=== PATIENT | male | born 1945 | race Caucasian/White ===

== ENCOUNTER → 2016-04-14 | Outpatient (RCR) ==
--- NOTE | 2016-03-25 16:24 | RS.OPPTEV2 ---
Date of Note: 03/24/16 Visit #: 1 Date of Evaluation: 03/24/16 Payer Source: MEDICARE Treatment Diagnosis: low back pain, LE pain, Parkinson's History of Condition/Mechanism of Injury:: Patient reports progressive low back pain for the last few years. Reports no specific injury. He was diagnosed with Parkinson's approximately 3 years ago and reports decreased flexibility and LE weakness. Prior Level of Function.....Patient was independent with: ADL's, Self Care, Caregiving, Ambulation/Mobility, Community Integration/Access Functional Limitations: ADL's, Reaching, Pushing, Pulling, Lifting, Carrying, Sitting, Standing, Bending, Squatting, Ambulation, Community Access/Integration Current Subjective/complaints:: Patient reports low back pain with just about any activity that he has to lift something or bend over. States at times his pain is sharp like a knife. Reports no radiating pain into the legs, but sometimes pain into the buttock area, bilaterally. Denies any numbness in the LE's. Reports tightness in the legs, weakness, and occasionally leg restlessness at night. He has had some problems with dizziness. He had one fall due to dizziness. States if he takes his time when changing positions, he will have less dizziness. Medical History Medical History: Hypertension Smoking Status: Former smoker Hx Home Medications: Sinemet, Xozaar, ASA, Azilect,Lexapro Patient's Goals: His goal is to get relief of back and LE pain. Pain Assessment - Pain Description Pain Location: low back Current Pain Intensity: 1/10 Worst Pain Intensity: 7/10 Functional Outcome Measure Oswestry LBP: 20 - G Codes & Severity Modifier G Codes & Modifier: Mobility current CJ. Mobility goal CH Source of G Code score: Oswestry LBP scale Observation - Observation Posture: Forward Head, Rounded Shoulders, Scapula Asymmetry (left elevated), Decreased Lumbar Lordosis, Posterior Pelvic Tilt Handedness: Left Comments: Demonstrates a resting tremor, most noticable in the left hand. Gait - Gait Pattern Gait Comments: Patient ambulates without an assistive device, independently. He exhibits a forward posture with decreased bilateral hip and knee flexion and decreased reciprocal arm swing. General Range of Motion: Bilateral shoulder AROM is approximately 75-80% of normal range due to muscle tightness. Bilateral elbow, wrist, and hand AROM is WFL's. Left LE AROM is WFL's, however the left hip joint is tighter throughout compared to the right hip. Bilateral knees and ankle ROM is WFL's. Lumbar AROM is WFL's. Lumbar flexion with reports of tightness in the LE's. lumbar extension is approximately 25% of normal. Tightness in the trunk with lower trunk rotation, more on the left side. Muscle Strength: Bilateral UE strength is 5/5 throughout. Left hip flexor is 4/ 5, All else of bilateral hips 4+/5. Trunk strength 4-/5. - Strength Trunk Rotation: 4- Good- - Special Tests SUSAN Test: Negative Left, Negative Right SLR Test: Negative Left, Negative Right Keyla's Sign Test: Negative Left, Negative Right Seated Dural Stretch Test: Negative Left, Negative Right SI Joint Compression: Negative SI Joint Distraction: Negative Palpation Comments:: Patient reports no tenderness to either SI joint region or throughout the lumbar paraspinals. Sensation - Sensation Right Upper Extremity: Intact/Normal Left Upper Extremity: Intact/Normal Right Lower Extremity: Intact/Normal Left Lower Extremity: Intact/Normal Balance - Sitting Balance Static Sitting Balance: Good Dynamic Sitting Balance: Good - Standing Balance Static Standing Balance: Good (-) Dynamic Standing Balance: Good (-) - Comments Balance Assessment Comments: Balance assessment on Biodex: patient displays good static and dyamic balance. Coordination - Tests Left Finger to Nose: Normal/Intact Heel to Stewart: Normal/Intact Toe Tapping: Mild Deviation (with increased speed) Right Finger to Nose: Normal/Intact Heel to Stewart: Normal/Intact Toe Tapping: Normal/Intact Additional Comments: Additional Comments: SLR in supine: right 40 degrees, left 30-35 degrees. Interventions - Exercise/Activities/Manual Therapy Exercises/Activities: Patient instructed in exercises for home of stretching of : HS stretch, lower trunk rotation, pec stretch (corner). Total minutes of Exercise: X 10 mins Manual Therapy: NA HOME EXERCISE PROGRAM: stretching of: HS stretch, lower trunk rotation, pec stretch (corner). - Charges Total Direct Minutes: 48 mins Total Treatment Time: 48 mins Procedures billed for this date of service:: EVAL Assessment Assessment: Patient presents to therapy with diagnosis of low back pain and Parkinson's Disease. He demonstrates marked hamstring and trunk limitation from muscle tightness. Exhibits weakness in the left hip flexors and trunk. He demonstrates potential to gain relief of low back pain and improved mobility with stretching and trunk and LE strengthening. Patient Education: Education of diagnosis, Body/Joint mechanics, Home Exercise Program, Home Safety, Activity Modification, Education of Plan of Care Rehab Potential: Good Short Term Goals Goal #1: Pt independent and compliant with basic HEP. Goal to be met by: 04/08/16 Goal #2: Bilateral SLR to 45 degrees. Goal to be met by: 04/08/16 Goal #3: Trunk strength 4/5. Goal to be met by: 04/08/16 Goal #4: Low Back pain <4/10 at it's worst. Goal to be met by: 04/08/16 Applications Processor Goals Goal #1: Pt knows HEP and to continue to maintain functional level at discharge. Goal to be met by: 05/04/16 Goal #2: Pt able to perform ADL's and light lifting/yardwork without back pain. Goal to be met by: 05/04/16 Goal #3: Score on Oswesty LBP scale improved to 0 impairment. Goal to be met by: 05/04/16 Goal #4: Pt to demo. good understanding of Parkinson's symptom management. Goal to be met by: 05/04/16 Plan - Treatment to be Provided Procedures: Therapeutic Exercises, Therapeutic Activity, Manual Therapy, Patient Education Modalities: Electrical Stimulation, Ultrasound/Phonophoresis, Cryotherapy, Hot Packs, Mechanical Traction (lumbar) - Treatment Plan Frequency: 3 X week Duration: 4 weeks ORDER # VISITS AND/OR THROUGH DATE: 05/04/16 - Treatment Code (1) Low back pain Qualifiers: Chronicity: chronic Back pain laterality: bilateral Sciatica presence: unspecified whether sciatica present Qualified Description: Chronic bilateral low back pain, with sciatica presence unspecified Qualifier Code(s): (M54.5) Low back pain, (G89.29) Other chronic pain (2) Weakness of trunk musculature Comments: M62.81 (3) Hamstring tightness of both lower extremities Comments: M62.9 (4) Parkinson disease Comments: G20
--- NOTE | 2016-03-25 16:33 | RS.OPPTDN ---
Subjective Date of Note: 03/25/16 Visit #: 2 Date of Evaluation: 03/24/16 Payer Source: MEDICARE Treatment Diagnosis: low back pain, LE pain, Parkinson's Current Subjective/complaints:: Patient states his legs are sore from performing stretching exercises at home. Following session today, patient states he feels more limber. Reports stretching to left HS bothers his knee in the posterior region. Pain Assessment - Pain Description Pain Location: low back Current Pain Intensity: not quantified - Heat/Cryotherapy Treatment: Hot Pack (X 15 mins to low back and HS prior to stretching) Interventions - Exercise/Activities/Manual Therapy Exercises/Activities: Patient assisted with stretching of bilateral LE's: HS, SKTC, and piriformis. Also stretched into bilateral lower trunk rotation. Patient performed door threshold/corner stretch to improve flexibility in pec major. Total minutes of Exercise: X 28 mins Manual Therapy: NA HOME EXERCISE PROGRAM: stretching of: HS stretch, lower trunk rotation, pec stretch (corner). - Charges Total Direct Minutes: 28 mins Total Treatment Time: 43 mins Procedures billed for this date of service:: HP, Ex2 Assessment: Patient appears compliant with stretching HEP. Feels more limber today following therapy. He demonstrates the need for continued stretching and progressed exercises to strengthening for his trunk and LE's. Patient Education: Education of diagnosis, Body/Joint mechanics, Home Exercise Program Patient demonstrates compliance with HEP?: Yes Short Term Goals Goal #1: Pt independent and compliant with basic HEP. Goal to be met by: 04/08/16 Goal #2: Bilateral SLR to 45 degrees. Goal to be met by: 04/08/16 Goal #3: Trunk strength 4/5. Goal to be met by: 04/08/16 Goal #4: Low Back pain <4/10 at it's worst. Goal to be met by: 04/08/16 Assisted Goals Goal #1: Pt knows HEP and to continue to maintain functional level at discharge. Goal to be met by: 05/04/16 Goal #2: Pt able to perform ADL's and light lifting/yardwork without back pain. Goal to be met by: 05/04/16 Goal #3: Score on Oswesty LBP scale improved to 0 impairment. Goal to be met by: 05/04/16 Goal #4: Pt to demo. good understanding of Parkinson's symptom management. Goal to be met by: 05/04/16 Plan PLAN OF CARE EXPIRES ON:: 05/04/16 ORDER # VISITS AND/OR THROUGH DATE: 05/04/16 PLAN: Progress Exercises
--- NOTE | 2016-03-27 14:17 | RS.OPPTDN ---
Subjective Date of Note: 03/27/16 Visit #: 3 Date of Evaluation: 03/24/16 Payer Source: MEDICARE Treatment Diagnosis: low back pain, LE pain, Parkinson's Current Subjective/complaints:: Reports muscle soreness from beginning stretches ,but no sharp pain at this time. Pain Assessment - Pain Description Pain Location: low back Pain Description: Tightness, Dull, Aching Current Pain Intensity: not quantified - Heat/Cryotherapy Treatment: Hot Pack (20 mins. to lumbar and bilateral hamstrings prior to exercises) Interventions - Exercise/Activities/Manual Therapy Exercises/Activities: 30 mins. total of SKTC,DKTC,90/90 hamstring stretches, piriformis stretches,lower trunk rotation.Contract-relax method for hamstring stretches. Total minutes of Exercise: 30 Manual Therapy: NA Total minutes of Manual Therapy: 0 HOME EXERCISE PROGRAM: stretching of: HS stretch, lower trunk rotation, pec stretch (corner). - Charges Total Direct Minutes: 30 Total Treatment Time: 50 Procedures billed for this date of service:: hp,ex 2 Assessment: Patient tolerates all lumbar stretches well,reports slight increase in pain with L piriformis stretches,and with hamstring stretches.He has moderate tightness bilaterally in hamstrings,L > R today.He is attentive to recommendations of the therapy staff. Patient Education: Education of diagnosis, Body/Joint mechanics, Home Exercise Program, Home Safety, Activity Modification, Education of Plan of Care Patient demonstrates compliance with HEP?: Yes Short Term Goals Goal #1: Pt independent and compliant with basic HEP. Goal to be met by: 04/08/16 Progress towards Goal:: Progressing Goal #2: Bilateral SLR to 45 degrees. Goal to be met by: 04/08/16 Goal #3: Trunk strength 4/5. Goal to be met by: 04/08/16 Goal #4: Low Back pain <4/10 at it's worst. Goal to be met by: 04/08/16 Employment Legal Assistant Goals Goal #1: Pt knows HEP and to continue to maintain functional level at discharge. Goal to be met by: 05/04/16 Goal #2: Pt able to perform ADL's and light lifting/yardwork without back pain. Goal to be met by: 05/04/16 Goal #3: Score on Oswesty LBP scale improved to 0 impairment. Goal to be met by: 05/04/16 Goal #4: Pt to demo. good understanding of Parkinson's symptom management. Goal to be met by: 05/04/16 Plan PLAN OF CARE EXPIRES ON:: 05/04/16 ORDER # VISITS AND/OR THROUGH DATE: 05/04/16 PLAN: Continue Plan of Care
--- NOTE | 2016-03-30 14:56 | RS.OPPTDN ---
Subjective Date of Note: 03/30/16 Visit #: 4 Date of Evaluation: 03/24/16 Payer Source: MEDICARE Treatment Diagnosis: low back pain, LE pain, Parkinson's Current Subjective/complaints:: Patient states the stretching seems to be helping his legs. States his left knee hurts in the posterior region of the joint during HS stretching. Pain Assessment - Pain Description Pain Location: low back Pain Description: Tightness, Dull, Aching Current Pain Intensity: not quantified - Heat/Cryotherapy Treatment: Hot Pack (X 15 mins to low back and HS while lying supine prior to stretching) Interventions - Exercise/Activities/Manual Therapy Exercises/Activities: 35 mins. total of SKTC,DKTC,90/90 hamstring stretches, piriformis stretches,lower trunk rotation.Contract-relax method for hamstring stretches. Stretching pec major in door threshold X 5 reps. Manual Therapy: NA HOME EXERCISE PROGRAM: stretching of: HS stretch, lower trunk rotation, pec stretch (corner). - Charges Total Direct Minutes: 35 mins Total Treatment Time: 50 mins Procedures billed for this date of service:: HP, Ex2 Assessment: Patient tolerates stretching well except for discomfort in the posterior aspect of the left knee. Reports stretching is benefitting his legs. Patient Education: Education of diagnosis, Body/Joint mechanics Patient demonstrates compliance with HEP?: Yes Short Term Goals Goal #1: Pt independent and compliant with basic HEP. Goal to be met by: 04/08/16 Progress towards Goal:: Progressing Goal #2: Bilateral SLR to 45 degrees. Goal to be met by: 04/08/16 Progress towards Goal:: Progressing Goal #3: Trunk strength 4/5. Goal to be met by: 04/08/16 Goal #4: Low Back pain <4/10 at it's worst. Goal to be met by: 04/08/16 Senior Living Goals Goal #1: Pt knows HEP and to continue to maintain functional level at discharge. Goal to be met by: 05/04/16 Goal #2: Pt able to perform ADL's and light lifting/yardwork without back pain. Goal to be met by: 05/04/16 Goal #3: Score on Oswesty LBP scale improved to 0 impairment. Goal to be met by: 05/04/16 Goal #4: Pt to demo. good understanding of Parkinson's symptom management. Goal to be met by: 05/04/16 Plan PLAN OF CARE EXPIRES ON:: 05/04/16 ORDER # VISITS AND/OR THROUGH DATE: 05/04/16 PLAN: Continue Plan of Care
--- NOTE | 2016-04-01 14:29 | RS.OPPTDN ---
Subjective Date of Note: 04/01/16 Visit #: 5 Date of Evaluation: 03/24/16 Payer Source: MEDICARE Treatment Diagnosis: low back pain, LE pain, Parkinson's Current Subjective/complaints:: Reports the stretches seem to help his legs , but the back pain is still present. Pain Assessment - Pain Description Pain Location: low back Pain Description: Tightness, Dull, Aching Current Pain Intensity: 2-3 today - Treatment Modality: Electrical Stim Unattended Parameters/Method Applied: 20 mins. high volt,channel 1 and 2 @ 125 pv to lumbar region. Patient Position: Supine - Heat/Cryotherapy Treatment: Hot Pack (concurrent with e-stim) Interventions - Exercise/Activities/Manual Therapy Exercises/Activities: 30 mins. total of SKTC,DKTC,lower trunk rotation,90/90 hamstring stretches,using contract-relax method.HEP review ,including corner stretches for pecs. Total minutes of Exercise: 30 Manual Therapy: NA Total minutes of Manual Therapy: 0 HOME EXERCISE PROGRAM: stretching of: HS stretch, lower trunk rotation, pec stretch (corner). - Charges Total Direct Minutes: 30 Total Treatment Time: 50 Procedures billed for this date of service:: hp,e-stim, ex 2 Assessment: Patient continues to have improved hamstring extensibility after contract-relax method,but the L LE is tighter than the L,also tighter on the L lumbar with lower trunk rotation. Patient Education: Education of diagnosis, Body/Joint mechanics, Home Exercise Program, Home Safety, Activity Modification, Education of Plan of Care Patient demonstrates compliance with HEP?: Yes Short Term Goals Goal #1: Pt independent and compliant with basic HEP. Goal to be met by: 04/08/16 Progress towards Goal:: Progressing Goal #2: Bilateral SLR to 45 degrees. Goal to be met by: 04/08/16 Progress towards Goal:: Progressing Goal #3: Trunk strength 4/5. Goal to be met by: 04/08/16 Goal #4: Low Back pain <4/10 at it's worst. Goal to be met by: 04/08/16 Grading Machine Feeder Goals Goal #1: Pt knows HEP and to continue to maintain functional level at discharge. Goal to be met by: 05/04/16 Progress towards goal: Progressing Goal #2: Pt able to perform ADL's and light lifting/yardwork without back pain. Goal to be met by: 05/04/16 Goal #3: Score on Oswesty LBP scale improved to 0 impairment. Goal to be met by: 05/04/16 Goal #4: Pt to demo. good understanding of Parkinson's symptom management. Goal to be met by: 05/04/16 Plan PLAN OF CARE EXPIRES ON:: 05/04/16 ORDER # VISITS AND/OR THROUGH DATE: 05/04/16 PLAN: Continue Plan of Care
--- NOTE | 2016-04-06 14:29 | RS.OPPTDN ---
Subjective Date of Note: 04/03/16 Date of Evaluation: 03/24/16 Payer Source: MEDICARE Treatment Diagnosis: low back pain, LE pain, Parkinson's Current Subjective/complaints:: Reports the posterior of the L knee is sore today,his back feels better. Pain Assessment - Pain Description Pain Location: low back ck of L knee Pain Description: Tightness, Dull, Aching Current Pain Intensity: 2-3 today - Treatment Modality: Electrical Stim Unattended Parameters/Method Applied: 20 mins. high volt,channel 1 and 2 @ 125 pv to lumbar Patient Position: Supine - Heat/Cryotherapy Treatment: Hot Pack (concurrent with e-stim) Interventions - Exercise/Activities/Manual Therapy Exercises/Activities: 20 mins. total of SKTC,DKTC,lower trunk rotation,90/90 hamstring stretches,using contract-relax method.HEP review ,including corner stretches for pecs. Total minutes of Exercise: 30 Manual Therapy: NA Total minutes of Manual Therapy: 0 HOME EXERCISE PROGRAM: stretching of: HS stretch, lower trunk rotation, pec stretch (corner). - Charges Total Direct Minutes: 20 Total Treatment Time: 40 Procedures billed for this date of service:: hp,e-stim,ex Assessment: Patient reports the back pain continues to lessen,LE's feel looser with walking after stretches. Patient Education: Body/Joint mechanics, Home Exercise Program, Education of Plan of Care Patient demonstrates compliance with HEP?: Yes Short Term Goals Goal #1: Pt independent and compliant with basic HEP. Goal to be met by: 04/08/16 Progress towards Goal:: Progressing Goal #2: Bilateral SLR to 45 degrees. Goal to be met by: 04/08/16 Progress towards Goal:: Progressing Goal #3: Trunk strength 4/5. Goal to be met by: 04/08/16 Goal #4: Low Back pain <4/10 at it's worst. Goal to be met by: 04/08/16 Progress towards Goal:: Progressing Snf Goals Goal #1: Pt knows HEP and to continue to maintain functional level at discharge. Goal to be met by: 05/04/16 Progress towards goal: Progressing Goal #2: Pt able to perform ADL's and light lifting/yardwork without back pain. Goal to be met by: 05/04/16 Goal #3: Score on Oswesty LBP scale improved to 0 impairment. Goal to be met by: 05/04/16 Goal #4: Pt to demo. good understanding of Parkinson's symptom management. Goal to be met by: 05/04/16 Progress towards goal: Progressing Plan PLAN OF CARE EXPIRES ON:: 05/04/16 ORDER # VISITS AND/OR THROUGH DATE: 05/04/16 PLAN: Continue Plan of Care
--- NOTE | 2016-04-06 14:36 | RS.OPPTDN ---
Subjective Date of Note: 04/06/16 Visit #: 7 Date of Evaluation: 03/24/16 Payer Source: MEDICARE Treatment Diagnosis: low back pain, LE pain, Parkinson's Current Subjective/complaints:: Reports the L knee is less sore today,and the back pain is lessening since beginning the e-stim. Pain Assessment - Pain Description Pain Location: low back Pain Description: Dull, Aching Current Pain Intensity: 2-3 today - Treatment Modality: Electrical Stim Unattended Parameters/Method Applied: 20 mins. high volt,channel 1 and 2 @ 125 pv,to lumbar. Patient Position: Supine - Heat/Cryotherapy Treatment: Hot Pack (concurrent with e-stim.) Interventions - Exercise/Activities/Manual Therapy Exercises/Activities: 30 mins. total of SKTC,DKTC,lower trunk rotation, piriformis stretches.Progressed to 3/15 reps on leg press @ 60 # ,ended session with 3/10 reps. calf-raises on leg press @ 45 #.HEP review of all stretches, including pecs. for posture. Total minutes of Exercise: 30 Manual Therapy: NA HOME EXERCISE PROGRAM: stretching of: HS stretch, lower trunk rotation, pec stretch (corner). - Charges Total Direct Minutes: 30 Total Treatment Time: 50 Procedures billed for this date of service:: hp,e-stim,ex 2 Assessment: Patient has no report of increased leg or back pain today , tolerates resistive exercises well,no knee pain.He reports fatigue in his LE's after treatment ,but has steady gait with exiting clinic. Patient Education: Education of diagnosis, Body/Joint mechanics, Home Exercise Program, Home Safety, Activity Modification, Education of Plan of Care Patient demonstrates compliance with HEP?: Yes Short Term Goals Goal #1: Pt independent and compliant with basic HEP. Goal to be met by: 04/08/16 Progress towards Goal:: Progressing Goal #2: Bilateral SLR to 45 degrees. Goal to be met by: 04/08/16 Progress towards Goal:: Progressing Goal #3: Trunk strength 4/5. Goal to be met by: 04/08/16 Progress towards Goal:: Progressing Goal #4: Low Back pain <4/10 at it's worst. Goal to be met by: 04/08/16 Progress towards Goal:: Progressing Hand Tube Winder Goals Goal #1: Pt knows HEP and to continue to maintain functional level at discharge. Goal to be met by: 05/04/16 Progress towards goal: Progressing Goal #2: Pt able to perform ADL's and light lifting/yardwork without back pain. Goal to be met by: 05/04/16 Goal #3: Score on Oswesty LBP scale improved to 0 impairment. Goal to be met by: 05/04/16 Goal #4: Pt to demo. good understanding of Parkinson's symptom management. Goal to be met by: 05/04/16 Progress towards goal: Progressing Plan PLAN OF CARE EXPIRES ON:: 05/04/16 ORDER # VISITS AND/OR THROUGH DATE: 05/04/16 PLAN: Progress Exercises
--- NOTE | 2016-04-13 13:19 | RS.OPPTDN ---
Subjective Date of Note: 04/09/16 Visit #: 8 Date of Evaluation: 03/24/16 Payer Source: MEDICARE Treatment Diagnosis: low back pain, LE pain, Parkinson's Current Subjective/complaints:: Patient states he fell last night in his [employer] [place]. States he was walking out and dropped his bible. When he looked down at the bible, he black out and fell down, hitting his head on the pavement. He did not go to the ER and has not called his doctor. Reports being sore all over today. Pain Assessment - Pain Description Pain Location: low back Pain Description: Dull, Aching Current Pain Intensity: not quanitified, sore due to fall - Treatment Modality: Electrical Stim Unattended Parameters/Method Applied: 4 large pads, uncrossed current to lumbar spine bilaterally X 20 mins HVGS @ 100 peak volts. Patient Position: Supine - Heat/Cryotherapy Treatment: Hot Pack ( with estim to low back) Interventions - Exercise/Activities/Manual Therapy Exercises/Activities: 18 mins. total of SKTC,DKTC,lower trunk rotation, piriformis stretches. Performed SAQ's with 3# weights 2 sets of 10 reps. No leg press today as patient appears more guarded today due to soreness from his fall last night. Manual Therapy: NA HOME EXERCISE PROGRAM: stretching of: HS stretch, lower trunk rotation, pec stretch (corner). - Charges Total Direct Minutes: 18 mins Total Treatment Time: 38 mins Procedures billed for this date of service:: HP, Estim, EX Assessment: Patient with more discomfort today due to falling last night. He did not perform as many activities today in department. Will resume leg press and other LE strengthening exercises on next visit. Patient Education: Education of diagnosis, Body/Joint mechanics, Home Exercise Program, Activity Modification Short Term Goals Goal #1: Pt independent and compliant with basic HEP. Goal to be met by: 04/08/16 Progress towards Goal:: Progressing Goal #2: Bilateral SLR to 45 degrees. Goal to be met by: 04/08/16 Progress towards Goal:: Progressing Goal #3: Trunk strength 4/5. Goal to be met by: 04/08/16 Progress towards Goal:: Progressing Goal #4: Low Back pain <4/10 at it's worst. 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 Goal to be met by: 05/04/16 Progress towards goal: Progressing Goal #2: Pt able to perform ADL's and light lifting/yardwork without back pain. Goal to be met by: 05/04/16 Goal #3: Score on Oswesty LBP scale improved to 0 impairment. Goal to be met by: 05/04/16 Goal #4: Pt to demo. good understanding of Parkinson's symptom management. Goal to be met by: 05/04/16 Progress towards goal: Progressing Plan PLAN OF CARE EXPIRES ON:: 05/04/16 ORDER # VISITS AND/OR THROUGH DATE: 05/04/16 PLAN: Progress Exercises
--- NOTE | 2016-04-14 16:40 | RS.OPPTDN ---
Subjective Date of Note: 04/14/16 Visit #: 9 Date of Evaluation: 03/24/16 Payer Source: MEDICARE Treatment Diagnosis: low back pain, LE pain, Parkinson's Current Subjective/complaints:: Patient reports low back feels a little better. States Estim feels good to the low back. Right knee bothers him during exercises today. The right knee is the one he went down on and hit when he fell last week. States he is going to wean off of Lexapro as he has learned that it should not be taken with Azilect. Pain Assessment - Pain Description Pain Location: low back Pain Description: Dull, Aching - Treatment Modality: Electrical Stim Unattended Parameters/Method Applied: 4 large pads, uncrossed to low back X 20 mins @ 110 peak volts. Patient Position: Supine - Heat/Cryotherapy Treatment: Hot Pack (with Estim to low back) Interventions - Exercise/Activities/Manual Therapy Exercises/Activities: 22 mins. total of SKTC,DKTC,lower trunk rotation, piriformis stretches. Performed SAQ's and hooklying alternate hip flexion with 3 # weights 2 sets of 10 reps, isometric trunk rotation X 8 reps. Leg press with 45# 2 sets of 15 , then 60# heel raises 2 sets of 15 reps. Standing lat pull on tower with 15-20# ,2 sets of 15 reps. Manual Therapy: NA HOME EXERCISE PROGRAM: stretching of: HS stretch, lower trunk rotation, pec stretch (corner). - Charges Total Direct Minutes: 22 mins Total Treatment Time: 42 mins Procedures billed for this date of service:: hp, estim, Ex Assessment: Patient feeling better today, less sore. Tolerates all LE exercises well. He demonstrates the need for continued trunk and LE strengthening to improve his mobilit and decrease his back pain. Patient Education: Education of diagnosis, Home Exercise Program, Activity Modification Patient demonstrates compliance with HEP?: Yes Short Term Goals Goal #1: Pt independent and compliant with basic HEP. Goal to be met by: 04/08/16 Progress towards Goal:: Progressing Goal #2: Bilateral SLR to 45 degrees. Goal to be met by: 04/08/16 Progress towards Goal:: Progressing Goal #3: Trunk strength 4/5. Goal to be met by: 04/08/16 Progress towards Goal:: Progressing Goal #4: Low Back pain <4/10 at it's worst. 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 Goal to be met by: 05/04/16 Progress towards goal: Progressing Goal #2: Pt able to perform ADL's and light lifting/yardwork without back pain. Goal to be met by: 05/04/16 Goal #3: Score on Oswesty LBP scale improved to 0 impairment. Goal to be met by: 05/04/16 Goal #4: Pt to demo. good understanding of Parkinson's symptom management. Goal to be met by: 05/04/16 Progress towards goal: Progressing Plan PLAN OF CARE EXPIRES ON:: 05/04/16 ORDER # VISITS AND/OR THROUGH DATE: 05/04/16 PLAN: Progress Exercises
== END ==
PROVIDERS: ATTEND Specialist
DX: M54.42 Lumbago with sciatica, left side (principal); M54.41 Lumbago with sciatica, right side; G89.29 Other chronic pain; M62.81 Muscle weakness (generalized); M62.9 Disorder of muscle, unspecified; G20 Parkinson's disease

== ENCOUNTER → 2016-05-12 | Outpatient (RCR) ==
--- NOTE | 2016-04-16 16:15 | RS.OPPTDN ---
Subjective Date of Note: 04/16/16 Visit #: 10 Date of Evaluation: 03/24/16 Payer Source: MEDICARE Treatment Diagnosis: low back pain, LE pain, Parkinson's Current Subjective/complaints:: Patient feels the therapy is helping ,motivated to improve. Pain Assessment - Pain Description Pain Location: low back Pain Description: Tightness, Dull, Aching Current Pain Intensity: not rated today - Treatment Modality: Electrical Stim Unattended Parameters/Method Applied: 20 mins. high volt to lumbar ,2 channels @ 130-135pv. Patient Position: Supine - Heat/Cryotherapy Treatment: Hot Pack (concurrent with e-stim) Interventions - Exercise/Activities/Manual Therapy Exercises/Activities: 20 mins. total of SKTC,DKTC,lower trunk rotation, piriformis stretches. Performed SAQ's and hooklying alternate hip flexion with 3 # weights 2 sets of 10 reps, isometric trunk rotation X 8 reps. Leg press with 45# 2 sets of 15 , then 60# heel raises 2 sets of 15 reps. Standing lat pull on tower with 15-20# ,2 sets of 15 reps. Total minutes of Exercise: 20 Manual Therapy: NA Total minutes of Manual Therapy: 0 HOME EXERCISE PROGRAM: stretching of: HS stretch, lower trunk rotation, pec stretch (corner). - Charges Total Direct Minutes: 20 Total Treatment Time: 40 Procedures billed for this date of service:: hp,e-stim,exercise Assessment: Patient is progressing ,but can continue to benefit from skilled therapy to improve his hamstring extensibility,strengthen his trunk extensors for posture,further educate patient regarding management of Parkinson's. Patient Education: Body/Joint mechanics, Home Exercise Program, Education of Plan of Care Patient demonstrates compliance with HEP?: Yes Short Term Goals Goal #1: Pt independent and compliant with basic HEP. Goal to be met by: 04/08/16 Progress towards Goal:: Progressing Goal #2: Bilateral SLR to 45 degrees. Goal to be met by: 04/08/16 Progress towards Goal:: Progressing Goal #3: Trunk strength 4/5. Goal to be met by: 04/08/16 Progress towards Goal:: Progressing Goal #4: Low Back pain <4/10 at it's worst. Goal to be met by: 04/08/16 Progress towards Goal:: Progressing Fdc Goals Goal #1: Pt knows HEP and to continue to maintain functional level at discharge. Goal to be met by: 05/04/16 Progress towards goal: Progressing Goal #2: Pt able to perform ADL's and light lifting/yardwork without back pain. Goal to be met by: 05/04/16 Goal #3: Score on Oswesty LBP scale improved to 0 impairment. Goal to be met by: 05/04/16 Progress towards goal: Progressing Goal #4: Pt to demo. good understanding of Parkinson's symptom management. Goal to be met by: 05/04/16 Progress towards goal: Progressing Plan PLAN OF CARE EXPIRES ON:: 05/04/16 ORDER # VISITS AND/OR THROUGH DATE: 05/04/16 PLAN: Progress Exercises
--- NOTE | 2016-04-21 13:12 | RS.PTSUM ---
Progress Note/Summary Date of Note: 04/20/16 Date of Evaluation: 03/24/16 Number of Visits: 10 Reporting Period for this Progress Note: 03/24/16 through 04/16/16 Current Complaints/Gains: Patient reports therapy is helping his low back. He is performing his HEP at home. Recent fall last week has made him more sore. He feels he would benefit from continued therapy. Objective Measurements/Presentation: Patient demonstrates generalized lack of flexibility due to Parkinson's. He has gained flexibility in the hamstrings, but continues to be significantly tight. He demonstrates multiple times of being unsteady on his feet, either while walking in department or losing balance when performing transfers. Reports issues with sporadic dizziness and vision being affected. He continues to demonstrate general weakness of LE and trunk strength. G Codes: Mobility current CI. Mobility goal CH Source of G Code Score: Oswestry LBP score of 14. - Short Term Goals Goal #1: Pt independent and compliant with basic HEP. Goal to be met by: 05/04/16 Progress towards Goal:: Progressing Goal #2: Bilateral SLR to 45 degrees. Goal to be met by: 05/04/16 Progress towards Goal:: Progressing Goal #3: Trunk strength 4/5. Goal to be met by: 05/04/16 Progress towards Goal:: Progressing Goal #4: Low Back pain <4/10 at it's worst. Goal to be met by: 05/04/16 Progress towards Goal:: Progressing - Senior Living Goals Goal #1: Pt knows HEP and to continue to maintain functional level at discharge. Goal to be met by: 06/01/16 Progress towards goal: Progressing Goal #2: Pt able to perform ADL's and light lifting/yardwork without back pain. Goal to be met by: 06/01/16 Goal #3: Score on Oswesty LBP scale improved to 0 impairment. Goal to be met by: 06/01/16 Progress towards goal: Progressing Goal #4: Pt to demo. good understanding of Parkinson's symptom management. Goal to be met by: 06/01/16 Progress towards goal: Progressing - Assessment Assessment of Improvement/Progress: Patient demonstrates the need for continued trunk and LE strengthening to improve overall mobility and safety with ambulation. Summary: Patient has made progress towards goals., Patient demonstrates potential to gain increased function with therapy, Maximum potential has yet to be attained. - Plan Plan: Will request continuation of therapy sessions. PLAN OF CARE EXPIRES ON:: 06/01/16 ORDER # VISITS AND/OR THROUGH DATE: 06/01/16
--- NOTE | 2016-04-21 15:51 | RS.OPPTDN ---
Subjective Date of Note: 04/21/16 Visit #: 11 Date of Evaluation: 03/24/16 Payer Source: MEDICARE Treatment Diagnosis: low back pain, LE pain, Parkinson's Current Subjective/complaints:: Patient states his back is doing better. States he knows that he needs more strengthening in his legs. States he has been trying to remember to swing his arms better with walking. Reports dizziness during standing exercises. Pain Assessment - Pain Description Pain Location: low back Pain Description: Tightness, Dull Current Pain Intensity: mild - Treatment Modality: Electrical Stim Unattended Parameters/Method Applied: 4 large pads, one lead running horizontally across the region of ~ L4-L5 and the other lead horizontally a few levels higher X 20 mins up to 115 peak volts Patient Position: Supine - Heat/Cryotherapy Treatment: Hot Pack (with Estim to lumbar spine) Interventions - Exercise/Activities/Manual Therapy Exercises/Activities: 19 mins. total of hamstring ,lower trunk rotation , piriformis stretches. Performed SAQ's and hooklying alternate hip flexion with 4 # weights 2 sets of 10 reps, isometric trunk rotation X 8 reps. Leg press with 60# 2 sets of 15 , then 60# heel raises 2 sets of 15 reps. Standing lat pull on tower with 15-20# ,2 sets of 15 reps. Manual Therapy: NA HOME EXERCISE PROGRAM: stretching of: HS stretch, lower trunk rotation, pec stretch (corner). - Objective Findings Observations,measurements,etc.: Patient reports episode of dizziness and vision affected during scapular retraction exercises at UE tower. Patient sat down and dizziness resolved. Patient ambulates with an assistive device, with short stride , forward posture, minimal left arm swing, and minimal trunk rotation. - Charges Total Direct Minutes: 19 mins Total Treatment Time: 39 mins Procedures billed for this date of service:: HP, Estim, Ex Assessment: Patient tolerates increased weight with LE strengthening exercises. He demonstrates the need for continued stretching and strengthening to the lumbar spine and LE's to improve his mobility, continue to decrease his back pain, and improve his safety. Patient Education: Body/Joint mechanics, Home Safety, Activity Modification Patient demonstrates compliance with HEP?: Yes Short Term Goals Goal #1: Pt independent and compliant with basic HEP. Goal to be met by: 05/04/16 Progress towards Goal:: Progressing Goal #2: Bilateral SLR to 45 degrees. Goal to be met by: 05/04/16 Progress towards Goal:: Progressing Goal #3: Trunk strength 4/5. Goal to be met by: 05/04/16 Progress towards Goal:: Progressing Goal #4: Low Back pain <4/10 at it's worst. Goal to be met by: 05/04/16 Progress towards Goal:: Progressing Senior Living Goals Goal #1: Pt knows HEP and to continue to maintain functional level at discharge. Goal to be met by: 06/01/16 Progress towards goal: Progressing Goal #2: Pt able to perform ADL's and light lifting/yardwork without back pain. Goal to be met by: 06/01/16 Goal #3: Score on Oswesty LBP scale improved to 0 impairment. Goal to be met by: 06/01/16 Progress towards goal: Progressing Goal #4: Pt to demo. good understanding of Parkinson's symptom management. Goal to be met by: 06/01/16 Progress towards goal: Progressing Plan PLAN OF CARE EXPIRES ON:: 06/01/16 ORDER # VISITS AND/OR THROUGH DATE: 06/01/16 PLAN: Progress Exercises
--- NOTE | 2016-04-24 15:56 | RS.OPPTDN ---
Subjective Date of Note: 04/24/16 Visit #: 12 Date of Evaluation: 03/24/16 Payer Source: MEDICARE Treatment Diagnosis: low back pain, LE pain, Parkinson's Current Subjective/complaints:: Patient states his back is feeling better, but has not been performing activities that usually aggravate it. Reports episode of dizziness after getting off of leg press today. Pain Assessment - Pain Description Pain Location: low back Pain Description: Tightness, Dull Current Pain Intensity: mild - Heat/Cryotherapy Treatment: Hot Pack (X 15 mins to low back prior to exercises) Interventions - Exercise/Activities/Manual Therapy Exercises/Activities: 28 mins. total of hamstring ,lower trunk rotation , piriformis stretches. Performed SAQ's and hooklying alternate hip flexion with 4 # weights 2 sets of 10 reps, isometric trunk rotation X 8 reps. Leg press with 60# 2 sets of 15 , then 60# heel raises 2 sets of 15 reps. Standing lat pull on tower with 20# ,2 sets of 15 reps. Lat pull with 10# on each side of tower while sitting in chair 2 sets of 10 reps, wall slides X 10 reps Manual Therapy: NA HOME EXERCISE PROGRAM: stretching of: HS stretch, lower trunk rotation, pec stretch (corner). - Charges Total Direct Minutes: 28 mins Total Treatment Time: 43 mins Procedures billed for this date of service:: HP, Ex2 Assessment: Patient reporting less back pain, but also has not tried activities that usually bother his back. Tolerates added exercises today without difficulty. He did have one occasion of dizziness while walking from leg press. He demonstrates the need for continued strengthening and ROM exercises to reduce his rigidity and improve safety with mobility. Patient Education: Education of diagnosis, Body/Joint mechanics, Home Exercise Program Patient demonstrates compliance with HEP?: Yes Short Term Goals Goal #1: Pt independent and compliant with basic HEP. Goal to be met by: 05/04/16 Progress towards Goal:: Progressing Goal #2: Bilateral SLR to 45 degrees. Goal to be met by: 05/04/16 Progress towards Goal:: Progressing Comments:: Left LE tighter than normal today. Goal #3: Trunk strength 4/5. Goal to be met by: 05/04/16 Progress towards Goal:: Progressing Goal #4: Low Back pain <4/10 at it's worst. 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 Goal to be met by: 06/01/16 Progress towards goal: Progressing Goal #2: Pt able to perform ADL's and light lifting/yardwork without back pain. Goal to be met by: 06/01/16 Goal #3: Score on Oswesty LBP scale improved to 0 impairment. Goal to be met by: 06/01/16 Progress towards goal: Progressing Goal #4: Pt to demo. good understanding of Parkinson's symptom management. Goal to be met by: 06/01/16 Progress towards goal: Progressing Plan PLAN OF CARE EXPIRES ON:: 06/01/16 ORDER # VISITS AND/OR THROUGH DATE: 06/01/16 PLAN: Progress Exercises
--- NOTE | 2016-04-29 15:30 | RS.OPPTDN ---
Subjective Date of Note: 04/29/16 Visit #: 13 Date of Evaluation: 03/24/16 Payer Source: MEDICARE Treatment Diagnosis: low back pain, LE pain, Parkinson's Current Subjective/complaints:: Patient states he had MRI of the lumbar spine and was told that it showed spinal stenosis. Reports his back is not bothering him too bad. States his legs feel so weak. States just walking to his mailbox and back makes his legs feel so heavy he can hardly walk any further. Pain Assessment - Pain Description Pain Location: low back Pain Description: Tightness, Dull Current Pain Intensity: mild - Heat/Cryotherapy Treatment: Hot Pack (X 15 mins to low back prior to exercises) Interventions - Exercise/Activities/Manual Therapy Exercises/Activities: 31 mins. total of hamstring ,lower trunk rotation , piriformis stretches. Performed SAQ's and hooklying alternate hip flexion with 4 # weights 2 sets of 10 reps, isometric trunk rotation X 8 reps. Leg press with 60# 2 sets of 15 , then 60# heel raises 2 sets of 15 reps. Standing lat pull on tower with 20# ,2 sets of 15 reps. Lat pull with 10# on each side of tower while sitting in chair 2 sets of 10 reps, wall slides X 10 reps. Patient does not hold stretches long, cues given to hold for 20 sec count. Demonstrates difficulty performing these stretches without lifting his head and shoulders off of bed. Verbal cues given to relax shoulders and head. Manual Therapy: NA HOME EXERCISE PROGRAM: stretching of: HS stretch, lower trunk rotation, pec stretch (corner). - Charges Total Direct Minutes: 31 Total Treatment Time: 46 Procedures billed for this date of service:: hp, Ex2 Assessment: Patient with reports of continued LE weakness/heaviness. He requires assistance to perform LE stretching correctly. He demonstrates the need for continued LE strengthening to enable him to ambulate community distances safely. Patient Education: Education of diagnosis, Home Exercise Program, Home Safety Patient demonstrates compliance with HEP?: Yes Short Term Goals Goal #1: Pt independent and compliant with basic HEP. Goal to be met by: 05/04/16 Progress towards Goal:: Progressing Goal #2: Bilateral SLR to 45 degrees. Goal to be met by: 05/04/16 Progress towards Goal:: Progressing Comments:: Left LE continues to be tighter. Goal #3: Trunk strength 4/5. Goal to be met by: 05/04/16 Progress towards Goal:: Progressing Goal #4: Low Back pain <4/10 at it's worst. 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 Goal to be met by: 06/01/16 Progress towards goal: Progressing Goal #2: Pt able to perform ADL's and light lifting/yardwork without back pain. Goal to be met by: 06/01/16 Goal #3: Score on Oswesty LBP scale improved to 0 impairment. Goal to be met by: 06/01/16 Progress towards goal: Progressing Goal #4: Pt to demo. good understanding of Parkinson's symptom management. Goal to be met by: 06/01/16 Progress towards goal: Progressing Plan PLAN OF CARE EXPIRES ON:: 06/01/16 ORDER # VISITS AND/OR THROUGH DATE: 06/01/16 PLAN: Progress Exercises
--- NOTE | 2016-05-01 16:31 | RS.OPPTDN ---
Subjective Date of Note: 05/01/16 Visit #: 14 Date of Evaluation: 03/24/16 Payer Source: MEDICARE Treatment Diagnosis: low back pain, LE pain, Parkinson's Current Subjective/complaints:: Patient states his legs continue to feel heavy and weak. He is performing some of his exercises at home. States he has some ankle weights that he can use if he can find them. Pain Assessment - Pain Description Pain Location: low back Pain Description: Tightness, Dull Current Pain Intensity: mild - Heat/Cryotherapy Treatment: Hot Pack (X 15 mins to low back in supine prior to exercises) Interventions - Exercise/Activities/Manual Therapy Exercises/Activities: 29 mins. total of hamstring ,lower trunk rotation , piriformis stretches. Leg press with 60# 2 sets of 15 , then 60# heel raises 2 sets of 15 reps. Standing lat pull on tower with 20# ,2 sets of 15 reps. Lat pull with 10# on each side of tower while sitting in chair 2 sets of 10 reps, wall slides X 10 reps. Performed on stationary bike X 5 mins. Manual Therapy: NA HOME EXERCISE PROGRAM: stretching of: HS stretch, lower trunk rotation, pec stretch (corner). - Objective Findings Observations,measurements,etc.: Patient ambulates with less reciprocal arms swing on left side. Advised patient to try to swing the left arm as much as the right when ambulating. Trunk strength 4/5. Bilateral hip strength 4 to 4+/ 5, Quads 4+/5. - Charges Total Direct Minutes: 29 mins Total Treatment Time: 44 mins Procedures billed for this date of service:: hp, EX2 Assessment: Patient continues to have reports of legs feeling heavy and weak. He demonstrates good potenial to see leg symptoms improve with continued strengthening of the trunk and LE's. He also demonstrates the need for advice for postural and gait cues that are related to his Parkinson's Disease. Patient Education: Education of diagnosis, Body/Joint mechanics, Home Exercise Program, Home Safety, Activity Modification, Education of Plan of Care Patient demonstrates compliance with HEP?: Yes Short Term Goals Goal #1: Pt independent and compliant with basic HEP. Goal to be met by: 05/04/16 Progress towards Goal:: Progressing Goal #2: Bilateral SLR to 45 degrees. Goal to be met by: 05/04/16 Progress towards Goal:: Progressing Goal #3: Trunk strength 4/5. Goal to be met by: 05/04/16 Progress towards Goal:: Met Goal #4: Low Back pain <4/10 at it's worst. Goal to be met by: 05/04/16 Progress towards Goal:: Progressing Custodial Goals Goal #1: Pt knows HEP and to continue to maintain functional level at discharge. Goal to be met by: 06/01/16 Progress towards goal: Progressing Goal #2: Pt able to perform ADL's and light lifting/yardwork without back pain. Goal to be met by: 06/01/16 Goal #3: Score on Oswesty LBP scale improved to 0 impairment. Goal to be met by: 06/01/16 Progress towards goal: Progressing Goal #4: Pt to demo. good understanding of Parkinson's symptom management. Goal to be met by: 06/01/16 Progress towards goal: Progressing Plan PLAN OF CARE EXPIRES ON:: 06/01/16 ORDER # VISITS AND/OR THROUGH DATE: 06/01/16 PLAN: Continue Plan of Care
--- NOTE | 2016-05-06 16:41 | RS.OPPTDN ---
Subjective Date of Note: 05/06/16 Visit #: 15 Date of Evaluation: 03/24/16 Payer Source: MEDICARE Treatment Diagnosis: low back pain, LE pain, Parkinson's Current Subjective/complaints:: Patient states his legs and back felt really stiff this morning and after performing exercises at home, he felt better. Still having occasional issues with dizziness. Pain Assessment - Pain Description Pain Location: low back Pain Description: Tightness, Dull Current Pain Intensity: mild - Heat/Cryotherapy Treatment: Hot Pack (X 15 mins to lumbar spine prior to exercises) Interventions - Exercise/Activities/Manual Therapy Exercises/Activities: 26 mins. total of hamstring ,lower trunk rotation , piriformis stretches. 4#'s for SAQ's, hooklying hip flexion. Performed isometric trunk rotation. Leg press with 60# 2 sets of 15 , then 60# heel raises 2 sets of 15 reps. Standing lat pull on tower with 20# ,2 sets of 15 reps. Lat pull with 10# on each side of tower while sitting in chair 2 sets of 10 reps, wall slides X 10 reps. Manual Therapy: NA HOME EXERCISE PROGRAM: stretching of: HS stretch, lower trunk rotation, pec stretch (corner). - Objective Findings Observations,measurements,etc.: Education given on Postprandial hypotension and how to check if he has it. Patient given literature that includes what it is and tips for managing it. - Charges Total Direct Minutes: 26 mins Total Treatment Time: 41 mins Procedures billed for this date of service:: Zach Zhou Assessment: Patient reports improvement in symptoms this morning after performing exercises his HEP. Back pain seems to be better. He continues to report leg weakness and fatigue. Short Term Goals Goal #1: Pt independent and compliant with basic HEP. Goal to be met by: 05/04/16 Progress towards Goal:: Progressing Goal #2: Bilateral SLR to 45 degrees. Goal to be met by: 05/04/16 Progress towards Goal:: Progressing Comments:: left leg continues to be tighter Goal #3: Trunk strength 4/5. Goal to be met by: 05/04/16 Progress towards Goal:: Met Goal #4: Low Back pain <4/10 at it's worst. Goal to be met by: 05/04/16 Progress towards Goal:: Progressing Senior Living Goals Goal #1: Pt knows HEP and to continue to maintain functional level at discharge. Goal to be met by: 06/01/16 Progress towards goal: Progressing Goal #2: Pt able to perform ADL's and light lifting/yardwork without back pain. Goal to be met by: 06/01/16 Progress towards goal: Progressing Goal #3: Score on Oswesty LBP scale improved to 0 impairment. Goal to be met by: 06/01/16 Progress towards goal: Progressing Goal #4: Pt to demo. good understanding of Parkinson's symptom management. Goal to be met by: 06/01/16 Progress towards goal: Progressing Plan PLAN OF CARE EXPIRES ON:: 06/01/16 ORDER # VISITS AND/OR THROUGH DATE: 06/01/16 PLAN: Progress Exercises (and education)
--- NOTE | 2016-05-08 16:51 | RS.OPPTDN ---
Subjective Date of Note: 05/08/16 Visit #: 16 Date of Evaluation: 03/24/16 Payer Source: MEDICARE Treatment Diagnosis: low back pain, LE pain, Parkinson's Current Subjective/complaints:: Patient reports legs have felt so heavy since he got out of bed this morning. States he has not found his ankle weights, but will look for them this weekend. Reports his back feels pretty good, most problem today is his legs. Pain Assessment - Pain Description Pain Location: low back Pain Description: Tightness, Dull Current Pain Intensity: slight - Heat/Cryotherapy Treatment: Hot Pack (X 15 mins to low back prior to exercises) Interventions - Exercise/Activities/Manual Therapy Exercises/Activities: 31 mins. total of hamstring ,lower trunk rotation , piriformis stretches. 5#'s for SAQ's, hooklying hip flexion. Performed isometric trunk rotation. Leg press with 60# 2 sets of 15 , then 60# heel raises 2 sets of 15 reps. Standing lat pull on tower with 20# ,2 sets of 15 reps. Lat pull with 10# on each side of tower while sitting in chair 2 sets of 10 reps, Performed on stationary bike X 6 mins. Total minutes of Exercise: 31 mins direct plus 5 mins on bike Manual Therapy: NA HOME EXERCISE PROGRAM: stretching of: HS stretch, lower trunk rotation, pec stretch (corner), wall slides - Charges Total Direct Minutes: 31 mins Total Treatment Time: 51 mins Procedures billed for this date of service:: hp, Ex2 Assessment: Patient reports back continues to feel better. Leg heaviness is his main report today. Increased resistance with LE exercises, which patient tolerated fine. Recommended patient find ankle weights to use for exercises at home. Patient demonstrates compliance with HEP?: Yes Short Term Goals Goal #1: Pt independent and compliant with basic HEP. Goal to be met by: 05/04/16 Progress towards Goal:: Progressing Goal #2: Bilateral SLR to 45 degrees. Goal to be met by: 05/04/16 Progress towards Goal:: Progressing Comments:: 90% met on right, left 75% met Goal #3: Trunk strength 4/5. Goal to be met by: 05/04/16 Progress towards Goal:: Met Goal #4: Low Back pain <4/10 at it's worst. Goal to be met by: 05/04/16 Progress towards Goal:: Progressing Residential Goals Goal #1: Pt knows HEP and to continue to maintain functional level at discharge. Goal to be met by: 06/01/16 Progress towards goal: Progressing Goal #2: Pt able to perform ADL's and light lifting/yardwork without back pain. Goal to be met by: 06/01/16 Progress towards goal: Progressing Goal #3: Score on Oswesty LBP scale improved to 0 impairment. Goal to be met by: 06/01/16 Progress towards goal: Progressing Goal #4: Pt to demo. good understanding of Parkinson's symptom management. Goal to be met by: 06/01/16 Progress towards goal: Progressing Plan PLAN OF CARE EXPIRES ON:: 06/01/16 ORDER # VISITS AND/OR THROUGH DATE: 06/01/16 PLAN: Progress Exercises
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
== END ==
PROVIDERS: ATTEND Specialist
DX: M54.5 Low back pain (principal); G89.29 Other chronic pain; G20 Parkinson's disease

== ENCOUNTER 2016-05-22 13:00 | Outpatient (RCR) ==
--- NOTE | 2016-05-18 08:21 | RS.OPPTDN ---
Subjective Date of Note: 05/15/16 Visit #: 18 Date of Evaluation: 03/24/16 Payer Source: MEDICARE Treatment Diagnosis: low back pain, LE pain, Parkinson's Current Subjective/complaints:: Mr. Myrick states he picked up sticks in the yard yesterday. States today he has just mild back and LE soreness. 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 Pain Assessment - Pain Description Pain Location: low back Current Pain Intensity: slight Interventions - Exercise/Activities/Manual Therapy Exercises/Activities: 29 mins. total of hamstring ,lower trunk rotation , piriformis stretches. 5#'s for SAQ's, hooklying hip flexion. Performed isometric trunk rotation. Hooklying resisted lower trunk rotation with green theraband, resisted hip abduction with green theraband. Leg press with 60# 2 sets of 15 , then 60# heel raises 2 sets of 15 reps. , Performed on stationary bike X 6 mins. Manual Therapy: NA HOME EXERCISE PROGRAM: stretching of: HS stretch, lower trunk rotation, pec stretch (corner), wall slides - Charges Total Direct Minutes: 29 mins Total Treatment Time: 44 mins Procedures billed for this date of service:: HP, Ex2 Assessment: Patient reports performing light yard work with just stiffness the next day in back and LE's. Demonstrates good benefit of trunk and LE strenghtening. Demonstrates potential to benefit from further strengthening. Patient Education: Education of diagnosis, Home Safety, Activity Modification, Education of Plan of Care Patient demonstrates compliance with HEP?: Yes Short Term Goals Goal #1: Pt independent and compliant with basic HEP. Goal to be met by: 05/04/16 Progress towards Goal:: Met Goal #2: Bilateral SLR to 45 degrees. Goal to be met by: 05/04/16 Progress towards Goal:: Progressing Goal #3: Trunk strength 4/5. Goal to be met by: 05/04/16 Progress towards Goal:: Met Goal #4: Low Back pain <4/10 at it's worst. Goal to be met by: 05/04/16 Progress towards Goal:: Progressing Medical Transcriber Goals Goal #1: Pt knows HEP and to continue to maintain functional level at discharge. Goal to be met by: 06/01/16 Progress towards goal: Progressing Goal #2: Pt able to perform ADL's and light lifting/yardwork without back pain. Goal to be met by: 06/01/16 Progress towards goal: Progressing Goal #3: Score on Oswesty LBP scale improved to 0 impairment. Goal to be met by: 06/01/16 Progress towards goal: Progressing Goal #4: Pt to demo. good understanding of Parkinson's symptom management. Goal to be met by: 06/01/16 Progress towards goal: Progressing Plan PLAN OF CARE EXPIRES ON:: 06/01/16 ORDER # VISITS AND/OR THROUGH DATE: 06/01/16 PLAN: Progress Exercises
--- NOTE | 2016-05-19 14:24 | RS.OPPTDN ---
Subjective Date of Note: 05/19/16 Visit #: 19 Date of Evaluation: 03/24/16 Payer Source: MEDICARE Treatment Diagnosis: low back pain, LE pain, Parkinson's Current Subjective/complaints:: Patient states legs are stiff today. Back is not feeling too bad. Feels he is gaining strength in the legs. Pain Assessment - Pain Description Pain Location: low back Current Pain Intensity: slight Interventions - Exercise/Activities/Manual Therapy Exercises/Activities: 27 mins. total of hamstring ,lower trunk rotation , piriformis stretches. 5#'s for SAQ's, hooklying hip flexion. Performed isometric trunk rotation. 5# wand for bilateral shoulder flexion with hooklying hip flexion with 5# on each ankle, resisted hip abduction with green theraband. Leg press with 60# 2 sets of 15 , then 60# heel raises 2 sets of 15 reps. , Performed on stationary bike X 5 mins. Performs on UE tower for lat pull and scapular retraction 2 sets of 10 reps of 20#. Worked on ambulation with exaggerated recipocal arm swing on the left UE. Reminded to work on this for carry over with his walking. Discussed the importance of continued exercise /activity at home. Recommend stationary bike to get the reciprocal movement that is beneficial for Parkinson's Disease. Manual Therapy: NA HOME EXERCISE PROGRAM: stretching of: HS stretch, lower trunk rotation, pec stretch (corner), wall slides - Objective Findings Observations,measurements,etc.: SLR bilaterally 45-50 degrees. - Charges Total Direct Minutes: 27 mins Total Treatment Time: 42 mins Procedures billed for this date of service:: EX2, hp Assessment: Patient feels he is gaining leg strength. He is very receptive to advice/instructions to improve his gait and safety with mobility. Patient Education: Education of diagnosis, Home Exercise Program, Home Safety, Activity Modification, Education of Plan of Care Patient demonstrates compliance with HEP?: Yes Short Term Goals Goal #1: Pt independent and compliant with basic HEP. Goal to be met by: 05/04/16 Progress towards Goal:: Met Goal #2: Bilateral SLR to 45 degrees. Goal to be met by: 05/04/16 Progress towards Goal:: Met Goal #3: Trunk strength 4/5. Goal to be met by: 05/04/16 Progress towards Goal:: Met Goal #4: Low Back pain <4/10 at it's worst. Goal to be met by: 05/04/16 Progress towards Goal:: Progressing Jail Goals Goal #1: Pt knows HEP and to continue to maintain functional level at discharge. Goal to be met by: 06/01/16 Progress towards goal: Progressing Goal #2: Pt able to perform ADL's and light lifting/yardwork without back pain. Goal to be met by: 06/01/16 Progress towards goal: Progressing Goal #3: Score on Oswesty LBP scale improved to 0 impairment. Goal to be met by: 06/01/16 Progress towards goal: Progressing Goal #4: Pt to demo. good understanding of Parkinson's symptom management. Goal to be met by: 06/01/16 Progress towards goal: Progressing Plan PLAN OF CARE EXPIRES ON:: 06/01/16 ORDER # VISITS AND/OR THROUGH DATE: 06/01/16 PLAN: Continue Plan of Care
--- NOTE | 2016-05-25 08:44 | RS.OPPTDC ---
Date of Discharge: 05/22/16 Date of Evaluation: 03/24/16 Number of Visits: 20 Treatment Diagnosis: low back pain, LE pain, Parkinson's Current Complaints/Gains: Patient states therapy has helped his back and legs. States he can walk further, such as around in the yard or out in the community with less feeling of fatigue in his legs. States his back feels better in the mornings since having therapy. He is planning on buying a stationary recumbent bike and is performing his exercises at home. States worst back pain over the last few weeks has been <3/10. He reports no falls in the last 3 weeks. Pain Assessment - Pain Description Pain Location: low back Current Pain Intensity: low Functional Outcome Measure Oswestry LBP: 10 - G Codes & Severity Modifier G Codes & Modifier: Mobility D/C CI. Mobility goal CH Source of G Code score: Oswestry and presentation in department Gait - Gait Pattern Gait Comments: Patient ambulates with slight improvement in arm swing on the left UE. Demonstrates good clearance of feet during swing phase. Demonstrates no loss of balance or difficulty with gait. General Muscle Strength: bilateral LE muscle strength 4+ to 5/5 throughout. Trunk 4+/5. Interventions - Exercise/Activities/Manual Therapy Exercises/Activities: 37 mins. total of hamstring ,lower trunk rotation , piriformis stretches. 5#'s for SAQ's, hooklying hip flexion. Performed isometric trunk rotation. 5# wand for bilateral shoulder flexion with hooklying hip flexion with 5# on each ankle, resisted hip abduction with green theraband. Leg press with 60# 2 sets of 15 , then 60# heel raises 2 sets of 15 reps. , Performed on stationary bike X 5 mins. Performs on UE tower for lat pull and scapular retraction 2 sets of 10 reps of 20#. Patient given new green and blue theraband and summary of HEP to include scapular retraction, doorway pec stretch,lower trunk rotation, wall slides, and LAQ's. Also reviewed safety with gait. Manual Therapy: NA HOME EXERCISE PROGRAM: stretching of: HS stretch, lower trunk rotation, pec stretch (corner), wall slides - Charges Total Direct Minutes: 37 mins Total Treatment Time: 52 mins Procedures billed for this date of service:: hp, EX2 Assessment Assessment: Patient reports good progress with therapy. States he feels that he can do more at home before having back pain. States he still has good days and bad days, but feels he has gained strength in his back and legs and knows what to do to maintain his strength on his own. Patient Education: Education of diagnosis, Home Exercise Program, Home Safety, Activity Modification, Education of Plan of Care Short Term Goals Goal #1: Pt independent and compliant with basic HEP. Goal to be met by: 05/04/16 Progress towards Goal:: Met Goal #2: Bilateral SLR to 45 degrees. Goal to be met by: 05/04/16 Progress towards Goal:: Met Goal #3: Trunk strength 4/5. Goal to be met by: 05/04/16 Progress towards Goal:: Met Goal #4: Low Back pain <4/10 at it's worst. Goal to be met by: 05/04/16 Progress towards Goal:: Met Correction Goals Goal #1: Pt knows HEP and to continue to maintain functional level at discharge. Goal to be met by: 06/01/16 Progress towards goal: Met Goal #2: Pt able to perform ADL's and light lifting/yardwork without back pain. Goal to be met by: 06/01/16 Progress towards goal: Partially Met Goal #3: Score on Oswesty LBP scale improved to 0 impairment. Goal to be met by: 06/01/16 Progress towards goal: Not Met Comments: Improved to 10 from 20 at evaluation. Goal #4: Pt to demo. good understanding of Parkinson's symptom management. Goal to be met by: 06/01/16 Progress towards goal: Met Plan Reason for Discharge:: Maximum Potential Met (at this time)
== END 2016-06-12 ==
PROVIDERS: ATTEND Specialist
DX: M54.5 Low back pain (principal); G89.29 Other chronic pain; G20 Parkinson's disease

== ENCOUNTER → 2016-10-12 | Outpatient (RCR) ==
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
--- NOTE | 2016-10-06 14:38 | RS.OPPTDN ---
Subjective Date of Note: 10/06/16 Visit #: 2 Date of Evaluation: 10/01/16 Payer Source: MEDICARE Treatment Diagnosis: LE stiffness, LE weakness, decreased mobility, Parkinson's Disease Current Subjective/complaints:: Reports he has not felt very well today. States he has been more off balance this morning. Reports difficulty sleeping at night from muscle cramps or restless legs. Balance System Training - Level 1 Postural Stability/Symmetry #1 Training Mode: Postural Stability Training Vision: Eyes Open Task: Cognitive/Dual Tasks (patient recited the [place] phonetic alphabet, needed assistance with 5-6 words) Stance: Normal #2 Training Mode: Weight Shift Training Vision: Eyes Open Task: None Stance: Normal (and diagonal foot placment) Reps: X 10 reps each Interventions - Exercise/Activities/Manual Therapy Exercises/Activities: Introduced and performed the 7 main exercises of the LSVT BIG program. Performed each X 5 reps. Reviewed the science and results with LSVT BIG program and reinforced the importance of him performing these exercises each day at home. He was given his own copies of the exercise and grid sheet to document when he performs the exercises. Performed walking BIG X 6 reps. Patient needs tactile and verbal cues to initiate walking with opposite arm and leg. Manual Therapy: NA HOME EXERCISE PROGRAM: pec stretch (corner), 7 LSVT Big exercises - Charges Total Direct Minutes: 50 mins Total Treatment Time: 50 mins Procedures billed for this date of service:: EX2 Assessment: Patient tolerates LSVT Big exercises fairly well. Demonstrates most difficulty with movements that involve trunk rotation and balance. He is receptive to performing the exercises in the department and understands that he needs to perform them daily at home for maximum benefit. He presents to be a good candidate for continuation with this exercise program to increase his mobility and safety. Patient Education: Education of diagnosis, Body/Joint mechanics, Home Exercise Program, Home Safety, Activity Modification, Education of Plan of Care Short Term Goals Goal #1: Pt independent and compliant with initial HEP. Goal to be met by: 10/19/16 Goal #2: Left hip flexion strength 4/5. Goal to be met by: 10/19/16 Goal #3: Lower Trunk rotation 75% of normal range. Goal to be met by: 10/26/16 Goal #4: Pt able to touch elbows & back of hands to wall w/ wall yvonne stretch. Goal to be met by: 10/26/16 Detention Goals Goal #1: Pt knows to cont. HEP and daily exercise to maintain funct. level at D/ C. Goal to be met by: 11/24/16 Goal #2: Score on Tinetti Assessment improved to 26/28. Goal to be met by: 11/24/16 Goal #3: Pt able to ascend/descend basement stairs with min. difficulty. Goal to be met by: 11/24/16 Goal #4: Pt able to perform household activites/community distances w/ min. fatigue. Goal to be met by: 11/24/16 Plan PLAN OF CARE EXPIRES ON:: 11/24/16 ORDER # VISITS AND/OR THROUGH DATE: 11/24/16 PLAN: Continue Plan of Care
--- NOTE | 2016-10-08 15:59 | RS.OPPTDN ---
Subjective Date of Note: 10/08/16 Visit #: 3 Date of Evaluation: 10/01/16 Payer Source: MEDICARE Treatment Diagnosis: LE stiffness, LE weakness, decreased mobility, Parkinson's Disease Current Subjective/complaints:: States has is performing his exercises at home. States he has forgotten to perform the exercises bilaterally. Interventions - Exercise/Activities/Manual Therapy Exercises/Activities: Performed the 7 main exercises of the LSVT BIG program. Performed each X 5 reps. Performed walking BIG X 6 reps. Continues to need tactile and verbal cues to initiate walking with opposite arm and leg. Performed on treadmill .9 mph X3 (with rests between) marching with focus on the left leg for carryover to his walking. Performed side stepping while stating phonetic alphabet. Patient with better recall today, demonstrates times of discontinuous steps when trying to think of the correct word. Side and anterior steps onto green theraband step X 5 reps into each direction. Manual Therapy: NA HOME EXERCISE PROGRAM: pec stretch (corner), 7 LSVT Big exercises - Objective Findings Observations,measurements,etc.: Timed up and go test 10.43 seconds. - Charges Total Direct Minutes: 38 mins Total Treatment Time: 38 mins Procedures billed for this date of service:: EX, Neuro Assessment: Patient tolerates exercises. Demonstrates compliance with exercises for home. Patient demonstrates compliance with HEP?: Yes Short Term Goals Goal #1: Pt independent and compliant with initial HEP. Goal to be met by: 10/19/16 Progress towards Goal:: Progressing Goal #2: Left hip flexion strength 4/5. Goal to be met by: 10/19/16 Goal #3: Lower Trunk rotation 75% of normal range. Goal to be met by: 10/26/16 Goal #4: Pt able to touch elbows & back of hands to wall w/ wall yvonne stretch. Goal to be met by: 10/26/16 [facility] Goals Goal #1: Pt knows to cont. HEP and daily exercise to maintain funct. level at D/ C. Goal to be met by: 11/24/16 Goal #2: Score on Tinetti Assessment improved to 26/28. Goal to be met by: 11/24/16 Goal #3: Pt able to ascend/descend basement stairs with min. difficulty. Goal to be met by: 09/12/17 Goal #4: Pt able to perform household activites/community distances w/ min. fatigue. Goal to be met by: 11/24/16 Plan PLAN OF CARE EXPIRES ON:: 11/24/16 ORDER # VISITS AND/OR THROUGH DATE: 11/24/16 PLAN: Progress Exercises
--- NOTE | 2016-10-09 14:36 | RS.OPPTDN ---
Subjective Date of Note: 10/09/16 Visit #: 4 Date of Evaluation: 10/01/16 Payer Source: MEDICARE Treatment Diagnosis: LE stiffness, LE weakness, decreased mobility, Parkinson's Disease Current Subjective/complaints:: Patient states he has continued to perform his exercises at home. Pain Assessment - Pain Description Pain Location: low back Current Pain Intensity: low Interventions - Exercise/Activities/Manual Therapy Exercises/Activities: Performed the 7 main exercises of the LSVT BIG program. Performed each X 6 reps. Needs verbal cues to keep his trunk and head up while holding his arms back for Exercise #1, and to extend the knee of the posterior leg for Exercise 2. Performed walking BIG X 6 reps. He is quicker to self- correct himself when he does not start off correctly with the opposite arm/leg. Performed on treadmill .9 mph X3 for 45 seconds each (with rests between) marching with focus on the left leg for carryover to his walking. Side and anterior steps onto black theraband step X 5 reps into each direction. Demonstrates need for tactile cues to steady with lateral steps. Manual Therapy: NA HOME EXERCISE PROGRAM: pec stretch (corner), 7 LSVT Big exercises - Charges Total Direct Minutes: 42 mins Total Treatment Time: 42 mins Procedures billed for this date of service:: EX, Neuro Assessment: Patient presents to be compliant with LSVT exercises for home. Demonstrates the need for cuing to perform the exercises correctly. He will benefit from continued LSVT exercises ,and balance and LLE strengthening exercises to improve his mobility and safety. Patient Education: Education of diagnosis, Home Exercise Program Patient demonstrates compliance with HEP?: Yes Short Term Goals Goal #1: Pt independent and compliant with initial HEP. Goal to be met by: 10/19/16 Progress towards Goal:: Progressing Goal #2: Left hip flexion strength 4/5. Goal to be met by: 10/19/16 Goal #3: Lower Trunk rotation 75% of normal range. Goal to be met by: 10/26/16 Goal #4: Pt able to touch elbows & back of hands to wall w/ wall yvonne stretch. Goal to be met by: 10/26/16 Client Manager Goals Goal #1: Pt knows to cont. HEP and daily exercise to maintain funct. level at D/ C. Goal to be met by: 11/24/16 Goal #2: Score on Tinetti Assessment improved to 26/28. Goal to be met by: 11/24/16 Goal #3: Pt able to ascend/descend basement stairs with min. difficulty. Goal to be met by: 11/24/16 Goal #4: Pt able to perform household activites/community distances w/ min. fatigue. Goal to be met by: 11/24/16 Plan PLAN OF CARE EXPIRES ON:: 11/24/16 ORDER # VISITS AND/OR THROUGH DATE: 11/24/16 PLAN: Continue Plan of Care
--- NOTE | 2016-10-12 13:25 | RS.OPPTDN ---
Subjective Date of Note: 10/12/16 Visit #: 5 Date of Evaluation: 10/01/16 Payer Source: MEDICARE Treatment Diagnosis: LE stiffness, LE weakness, decreased mobility, Parkinson's Disease Current Subjective/complaints:: Patient reports feeling kind of dizzy this morning. States he did not perform his exercises yesterday. Balance System Training - Level 1 Postural Stability/Symmetry #1 Training Mode: Weight Shift Training Task: None Stance: Normal Reps: side to side, diagonal - Level 2 Dynamic Weight Shifting #1 Training Mode: Maze Control Skill Level (1-3): 1 Platform Stability Level (1-12): 12 Reps: X2 Interventions - Exercise/Activities/Manual Therapy Exercises/Activities: Performed the 7 main exercises of the LSVT BIG program. Performed each X 8 reps. Still needs verbal cues to keep his trunk and head up while holding his arms back for Exercise #1, and to extend the knee of the posterior leg for Exercise 2. Performed walking BIG X 6 reps. He continues to demonstrate difficulty initiating walking with the opposite arm and leg, but is able to self-correct with verbal cues. Performed on treadmill .9 mph X3 for 45 seconds each (with rests between) marching ( with 1.5 # on left ankle). Performed seated left hip flexion with 7.5# weight X 3 sets. Performed pec stretch in door threshold with assistance. Demonstrated use of towel roll for passive stretching for anterior chest/shoulders. Manual Therapy: NA HOME EXERCISE PROGRAM: pec stretch (corner), 7 LSVT Big exercises - Charges Total Direct Minutes: 43 mins Total Treatment Time: 43 mins Procedures billed for this date of service:: EX2 Assessment: Patient reports not feeling as well in the mornings. Has performed exercises daily except for Wednesday. Demonstrates continued need for assistance with exercises to perform them correctly for maximum benefit. Patient Education: Education of diagnosis, Home Exercise Program Short Term Goals Goal #1: Pt independent and compliant with initial HEP. Goal to be met by: 10/19/16 Progress towards Goal:: Progressing Goal #2: Left hip flexion strength 4/5. Goal to be met by: 10/19/16 Progress towards Goal:: Progressing Goal #3: Lower Trunk rotation 75% of normal range. Goal to be met by: 10/26/16 Goal #4: Pt able to touch elbows & back of hands to wall w/ wall yvonne stretch. Goal to be met by: 10/26/16 Residential Goals Goal #1: Pt knows to cont. HEP and daily exercise to maintain funct. level at D/ C. Goal to be met by: 11/24/16 Goal #2: Score on Tinetti Assessment improved to 26/28. Goal to be met by: 11/24/16 Goal #3: Pt able to ascend/descend basement stairs with min. difficulty. Goal to be met by: 11/24/16 Goal #4: Pt able to perform household activites/community distances w/ min. fatigue. Goal to be met by: 11/24/16 Plan PLAN OF CARE EXPIRES ON:: 11/24/16 ORDER # VISITS AND/OR THROUGH DATE: 11/24/16 PLAN: Continue Plan of Care
== END ==
PROVIDERS: ATTEND Specialist
DX: G20 Parkinson's disease (principal)

== ENCOUNTER 2016-11-11 13:00 | Outpatient (RCR) ==
--- NOTE | 2016-10-15 09:49 | RS.OPPTDN ---
Subjective Date of Note: 10/14/16 Visit #: 6 Date of Evaluation: 10/01/16 Payer Source: MEDICARE Treatment Diagnosis: LE stiffness, LE weakness, decreased mobility, Parkinson's Disease Current Subjective/complaints:: Patient reports several times of feeling dizzy and vision blurred. Asks to rest often between exercises. States he usually feels more dizzy in the mornings. Interventions - Exercise/Activities/Manual Therapy Exercises/Activities: Performed left hip flexion in sitting with 7.5 # weight to strengthen the hip flexor and carry over to improved clearance of the left LE with gait. Performed 7 exercises of the LSVT BIG program. Performed each X 8 reps. He needed frequent rest breaks between each exercise, due to feeling dizzy. Blood pressure taken of 106/78, then resumed exercises as dizziness subsided. Another episode of dizzness, blood pressure was 91/68. It was decided not to continue session due to blood pressure and symptoms. Patient rested ~15 mins and BP taken again: 102/70. Manual Therapy: NA HOME EXERCISE PROGRAM: pec stretch (corner), 7 LSVT Big exercises - Charges Total Direct Minutes: 19 mins Total Treatment Time: 45 mins Procedures billed for this date of service:: EX Assessment: Patient with difficulty tolerating exercises today due to blood pressure issues. Will plan to resume activities on Wednesday. Patient demonstrates compliance with HEP?: Yes Short Term Goals Goal #1: Pt independent and compliant with initial HEP. Goal to be met by: 10/19/16 Progress towards Goal:: Progressing Goal #2: Left hip flexion strength 4/5. Goal to be met by: 10/19/16 Progress towards Goal:: Progressing Goal #3: Lower Trunk rotation 75% of normal range. Goal to be met by: 10/26/16 Goal #4: Pt able to touch elbows & back of hands to wall w/ wall yvonne stretch. Goal to be met by: 10/26/16 [facility] Goals Goal #1: Pt knows to cont. HEP and daily exercise to maintain funct. level at D/ C. Goal to be met by: 11/24/16 Goal #2: Score on Tinetti Assessment improved to 26/28. Goal to be met by: 11/24/16 Goal #3: Pt able to ascend/descend basement stairs with min. difficulty. Goal to be met by: 11/24/16 Goal #4: Pt able to perform household activites/community distances w/ min. fatigue. Goal to be met by: 11/24/16 Plan PLAN OF CARE EXPIRES ON:: 11/24/16 ORDER # VISITS AND/OR THROUGH DATE: 11/24/16 PLAN: Continue Plan of Care
--- NOTE | 2016-10-16 15:50 | RS.OPPTDN ---
Subjective Date of Note: 10/16/16 Visit #: 7 Date of Evaluation: 10/01/16 Payer Source: MEDICARE Treatment Diagnosis: LE stiffness, LE weakness, decreased mobility, Parkinson's Disease Current Subjective/complaints:: Patient reports feeling better today. States he has tried taking some of his medications at different times to see if they won't affect his blood pressure the same way. Reports shortness of breath with activities today, especially walking and big movement exercises. Interventions - Exercise/Activities/Manual Therapy Exercises/Activities: Performed left hip flexion in sitting and up to a 6 inch step with 7.5 # weight to strengthen the hip flexor for carry over to improved clearance of the left LE with gait. Performed 7 exercises of the LSVT BIG program. Performed each X 8 reps. No reports of dizziness, but did ask to rest due to fatigue and shortness of breath. Performed BIG walking in hallway for exaggerated arm swing with steps. Patient needs verbal cues to keep his head up and some assistance to start off with opposite arm and leg. Manual Therapy: NA HOME EXERCISE PROGRAM: pec stretch (corner), 7 LSVT Big exercises - Charges Total Direct Minutes: 36 mins Total Treatment Time: 36 mins Procedures billed for this date of service:: EX2 Assessment: Patient demonstrates feeling better today. Able to complete activities today with no reports of dizziness, but does need rests due to fatigue. Will benefit from continued activities to promote improved movement, posture, strength, and safety. Patient demonstrates compliance with HEP?: Yes Short Term Goals Goal #1: Pt independent and compliant with initial HEP. Goal to be met by: 10/19/16 Progress towards Goal:: Progressing Goal #2: Left hip flexion strength 4/5. Goal to be met by: 10/19/16 Progress towards Goal:: Progressing Goal #3: Lower Trunk rotation 75% of normal range. Goal to be met by: 10/26/16 Goal #4: Pt able to touch elbows & back of hands to wall w/ wall yvonne stretch. Goal to be met by: 10/26/16 [facility]way Goals Goal #1: Pt knows to cont. HEP and daily exercise to maintain funct. level at D/ C. Goal to be met by: 11/24/16 Progress towards goal: Progressing Goal #2: Score on Tinetti Assessment improved to 26/28. Goal to be met by: 11/24/16 Goal #3: Pt able to ascend/descend basement stairs with min. difficulty. Goal to be met by: 11/24/16 Goal #4: Pt able to perform household activites/community distances w/ min. fatigue. Goal to be met by: 11/24/16 Plan PLAN OF CARE EXPIRES ON:: 11/24/16 ORDER # VISITS AND/OR THROUGH DATE: 11/24/16 PLAN: Continue Plan of Care Comments:: Will progress BIG exercises to 10 reps each next week.
--- NOTE | 2016-10-19 14:43 | RS.OPPTDN ---
Subjective Date of Note: 10/19/16 Visit #: 8 Date of Evaluation: 10/01/16 Payer Source: MEDICARE Treatment Diagnosis: LE stiffness, LE weakness, decreased mobility, Parkinson's Disease Current Subjective/complaints:: Patient reports improved balance with exercises. States he even feels like his balance with left single leg standing is better. Admits that he did not perform his exercises yesterday. Interventions - Exercise/Activities/Manual Therapy Exercises/Activities: Performed left hip flexion in sitting 10# weight to strengthen the hip flexor for carry over to improved clearance of the left LE with gait. Performed 7 exercises of the LSVT BIG program. Performed each X 10 reps. . Performed BIG walking in department for exaggerated arm swing with steps. Patient was able to initiate activity with opposite arm and leg swing appropriately each time (5-6 reps). Performed high stepping on the treadmill with a 2 lbs weight on the left ankle, 3 sets of ambulation @ .9 mph for 45 seconds each. Manual Therapy: NA HOME EXERCISE PROGRAM: pec stretch (corner), 7 LSVT Big exercises - Objective Findings Observations,measurements,etc.: Demonstrates less loss of balance during standing exercises, compared to initial visits. - Charges Total Direct Minutes: 47 mins Total Treatment Time: 47 mins Procedures billed for this date of service:: EX2 Assessment: Patient reports and demonstrates improved balance with performing exercises in the department. Tolerates increased weight with strengthening exercises and reps with activities. Patient demonstrates compliance with HEP?: Yes (mostly complaint) Short Term Goals Goal #1: Pt independent and compliant with initial HEP. Goal to be met by: 10/19/16 Progress towards Goal:: Progressing Goal #2: Left hip flexion strength 4/5. Goal to be met by: 10/19/16 Progress towards Goal:: Progressing Goal #3: Lower Trunk rotation 75% of normal range. Goal to be met by: 10/26/16 Progress towards Goal:: Progressing Goal #4: Pt able to touch elbows & back of hands to wall w/ wall yvonne stretch. Goal to be met by: 10/26/16 Fuse Cutter Goals Goal #1: Pt knows to cont. HEP and daily exercise to maintain funct. level at D/ C. Goal to be met by: 11/24/16 Progress towards goal: Progressing Goal #2: Score on Tinetti Assessment improved to 26/28. Goal to be met by: 11/24/16 Goal #3: Pt able to ascend/descend basement stairs with min. difficulty. Goal to be met by: 11/24/16 Goal #4: Pt able to perform household activites/community distances w/ min. fatigue. Goal to be met by: 11/24/16 Plan PLAN OF CARE EXPIRES ON:: 11/24/16 ORDER # VISITS AND/OR THROUGH DATE: 11/24/16 PLAN: Continue Plan of Care
--- NOTE | 2016-10-26 14:25 | RS.OPPTDN ---
Subjective Date of Note: 10/21/16 Visit #: 9 Date of Evaluation: 10/01/16 Payer Source: MEDICARE Treatment Diagnosis: LE stiffness, LE weakness, decreased mobility, Parkinson's Disease Current Subjective/complaints:: Patient reports performing his exercises at home. Pain Assessment - Pain Description Pain Location: low back Current Pain Intensity: low Interventions - Exercise/Activities/Manual Therapy Exercises/Activities: Performed left hip flexion in sitting 10# weight 4 sets of 10 reps,to strengthen the hip flexor for carry over to improved clearance of the left LE with gait. Performed 7 exercises of the LSVT BIG program. Performed each X 10 reps. Performed BIG walking in department for exaggerated arm swing with steps. Patient was able to initiate activity with opposite arm and leg swing appropriately each time (8 reps). Performed high stepping on the treadmill with a 2 lbs weight on the left ankle, 3 sets of ambulation @ .9 mph for 45 seconds each. Performed side stepping X 3 sets to each direction while stating the phonetic alphabet. Total minutes of Exercise: 34 mins (does not include LSVT BIG Program) Manual Therapy: NA HOME EXERCISE PROGRAM: pec stretch (corner), 7 LSVT Big exercises - Charges Total Direct Minutes: 34 mins Total Treatment Time: 34 mins Procedures billed for this date of service:: EX2 Assessment: Patient tolerates all exercises well. Demonstrates less unsteadiness during LSVT Big exercises. Only day he seems to miss performing exercises at home is Wednesday. Patient demonstrates compliance with HEP?: Yes Short Term Goals Goal #1: Pt independent and compliant with initial HEP. Goal to be met by: 10/19/16 Progress towards Goal:: Progressing Goal #2: Left hip flexion strength 4/5. Goal to be met by: 10/19/16 Progress towards Goal:: Progressing Goal #3: Lower Trunk rotation 75% of normal range. Goal to be met by: 10/26/16 Progress towards Goal:: Progressing Goal #4: Pt able to touch elbows & back of hands to wall w/ wall yvonne stretch. Goal to be met by: 10/26/16 Progress towards Goal:: Progressing Retirement Goals Goal #1: Pt knows to cont. HEP and daily exercise to maintain funct. level at D/ C. Goal to be met by: 11/24/16 Progress towards goal: Progressing Goal #2: Score on Tinetti Assessment improved to 26/28. Goal to be met by: 11/24/16 Goal #3: Pt able to ascend/descend basement stairs with min. difficulty. Goal to be met by: 11/24/16 Goal #4: Pt able to perform household activites/community distances w/ min. fatigue. Goal to be met by: 11/24/16 Progress towards goal: Progressing Plan PLAN OF CARE EXPIRES ON:: 11/24/16 ORDER # VISITS AND/OR THROUGH DATE: 11/24/16 PLAN: Continue Plan of Care
--- NOTE | 2016-10-26 16:30 | RS.PTSUM ---
Progress Note/Summary Date of Note: 10/26/16 Date of Evaluation: 10/01/16 Number of Visits: 10 Reporting Period for this Progress Note: 10/01/16 through 10/26/16 Current Complaints/Gains: Patient reports improved balance. States he can definitely tell he is more steady on his feet at night if he gets up to go to the bathroom. Objective Measurements/Presentation: Performed LSVT Big exercises X 10 reps each , hip flexion with left LE with 10# weight: 4 sets of 10 reps. Performed BIG walking X 8 reps with ability to correct himself on initiating proper opposite arm and leg. Walking in the champagne patient demonstrated two times of being off balanced. Treatment time today 35 mins, units charged EX2. Tinetti Assessment today =17.86% impairment. Presents to be much steadier during standing exercises compared to initial week of therapy. Gaining strength in the left hip , demonstrates with left hip flexion 4/5. Demonstrates improved trunk rotation. G Codes: Mobility current CI. Mobility goal CI Source of G Code Score: Tinetti Assessment. - Short Term Goals Goal #1: Pt independent and compliant with initial HEP. Goal to be met by: 10/19/16 Progress towards Goal:: Met Goal #2: Left hip flexion strength 4/5. Goal to be met by: 10/19/16 Progress towards Goal:: Met Goal #3: Lower Trunk rotation 75% of normal range. Goal to be met by: 10/26/16 Progress towards Goal:: Progressing Goal #4: Pt able to touch elbows & back of hands to wall w/ wall yvonne stretch. Goal to be met by: 10/26/16 Progress towards Goal:: Progressing - [facility] Goals Goal #1: Pt knows to cont. HEP and daily exercise to maintain funct. level at D/ C. Goal to be met by: 11/24/16 Progress towards goal: Progressing Goal #2: Score on Tinetti Assessment improved to 26/28. Goal to be met by: 11/24/16 Progress towards goal: Met Goal #3: Pt able to ascend/descend basement stairs with min. difficulty. Goal to be met by: 11/24/16 Progress towards goal: Progressing Goal #4: Pt able to perform household activites/community distances w/ min. fatigue. Goal to be met by: 11/24/16 Progress towards goal: Progressing - Assessment Assessment of Improvement/Progress: Patient demonstrates progress with ambulation and balance in the department. He has been compliant with HEP. He demonstrates progress with safety per Tinetti Asssessment, improving score to 23 /28. He demonstrates potential to gain further improved balance and safety with all mobility. Summary: Patient has made progress towards goals., Maximum potential has yet to be attained. - Plan Plan: Continue Plan of Care PLAN OF CARE EXPIRES ON:: 11/24/16 ORDER # VISITS AND/OR THROUGH DATE: 11/24/16
--- NOTE | 2016-11-03 15:43 | RS.OPPTDN ---
Subjective Date of Note: 11/03/16 Visit #: 11 Date of Evaluation: 10/01/16 Payer Source: MEDICARE Treatment Diagnosis: LE stiffness, LE weakness, decreased mobility, Parkinson's Disease Current Subjective/complaints:: Patient states he hurt his back last week and was not able to attend therapy. States his back is better, but he does not feel good due to his blood pressure being up and down. Interventions - Exercise/Activities/Manual Therapy Exercises/Activities: Performed left hip flexion in sitting 10# weight 4 sets of 10 reps. Performed 6 exercises of the LSVT BIG program. Performed each X 10 reps. Performed BIG walking in department for exaggerated arm swing with steps. Patient was able to initiate activity with opposite arm and leg swing appropriately each time (8 reps). Mid way through activities BP taken was 173/ 87. At the end of therapy session, BP was 169/87. Manual Therapy: NA HOME EXERCISE PROGRAM: pec stretch (corner), 7 LSVT Big exercises - Charges Total Direct Minutes: 22 mins Total Treatment Time: 22 mins Procedures billed for this date of service:: EX Assessment: Patient able to tolerate exercises, but blood pressure is high today. We did not perform activities on treadmill or other balance activities due to him not feeling well. Short Term Goals Goal #1: Pt independent and compliant with initial HEP. Goal to be met by: 10/19/16 Progress towards Goal:: Met Goal #2: Left hip flexion strength 4/5. Goal to be met by: 10/19/16 Progress towards Goal:: Met Goal #3: Lower Trunk rotation 75% of normal range. Goal to be met by: 10/26/16 Progress towards Goal:: Progressing Goal #4: Pt able to touch elbows & back of hands to wall w/ wall yvonne stretch. Goal to be met by: 10/26/16 Progress towards Goal:: Progressing Diet Aide Goals Goal #1: Pt knows to cont. HEP and daily exercise to maintain funct. level at D/ C. Goal to be met by: 11/24/16 Progress towards goal: Progressing Goal #2: Score on Tinetti Assessment improved to 26/28. Goal to be met by: 11/24/16 Progress towards goal: Met Goal #3: Pt able to ascend/descend basement stairs with min. difficulty. Goal to be met by: 11/24/16 Progress towards goal: Progressing Goal #4: Pt able to perform household activites/community distances w/ min. fatigue. Goal to be met by: 11/24/16 Progress towards goal: Progressing Plan PLAN OF CARE EXPIRES ON:: 11/24/16 ORDER # VISITS AND/OR THROUGH DATE: 11/24/16 PLAN: Continue Plan of Care
--- NOTE | 2016-11-04 14:07 | RS.OPPTDN ---
Subjective Date of Note: 11/04/16 Date of Evaluation: 10/01/16 Payer Source: MEDICARE Treatment Diagnosis: LE stiffness, LE weakness, decreased mobility, Parkinson's Disease Current Subjective/complaints:: Patient reports feeling better today. States blood pressure was better this morning. Interventions - Exercise/Activities/Manual Therapy Exercises/Activities: Performed 7 exercises of the LSVT BIG program. Verbal cues given to perform all exercises appropriately. Patient corrects with verbal cues for more upright posture or more movement of UE or LE. Performed each X 10 reps. BP taken: 126/80. Performed BIG walking in department for exaggerated arm swing with steps X 7 reps. Patient corrects himself if starting incorrectly. Patient performed limits of stability activity with platform locked and unlocked at level 10. Performs scapular retraction on multi-gym with 20 lbs , 10 reps X 3 sets to strengthen posterior postural muscles. Stretches in doorway to stretch pec major. Performed high knee flexion of left LE with ambulation on treadmill X 3 @ .9 mph for 45 seconds each time. Following exercises, BP 122/68. Total minutes of Exercise: X 35 mins (not including LSVT Big exercises) Manual Therapy: NA HOME EXERCISE PROGRAM: pec stretch (corner), 7 LSVT Big exercises - Objective Findings Observations,measurements,etc.: Left hip flexion 4+/5. Casual walking in the department, patient demonstrates slight horizontal abd/extension of the left arm as he advances the left LE. - Charges Total Direct Minutes: 35 mins Total Treatment Time: 55 mins Procedures billed for this date of service:: EX2 ( not billed for time on LSVT Big program) Assessment: Patient feeling better today. Demonstrates optimal blood pressure today. Still needs some verbal cues to perform LSVT Big exercises correctly. Will benefit from continued skilled therapy to perform exercises correctly, determine the amount of activity he should be doing depending on his blood pressure, and to continue balance activities to improve safety with mobility and decrease his risk for falls. Patient Education: Education of diagnosis, Body/Joint mechanics, Home Exercise Program, Home Safety, Activity Modification Patient demonstrates compliance with HEP?: Yes Short Term Goals Goal #1: Pt independent and compliant with initial HEP. Goal to be met by: 10/19/16 Progress towards Goal:: Met Goal #2: Left hip flexion strength 4/5. Goal to be met by: 10/19/16 Progress towards Goal:: Met Goal #3: Lower Trunk rotation 75% of normal range. Goal to be met by: 10/26/16 Progress towards Goal:: Progressing Goal #4: Pt able to touch elbows & back of hands to wall w/ wall yvonne stretch. Goal to be met by: 10/26/16 Progress towards Goal:: Progressing [facility] Goals Goal #1: Pt knows to cont. HEP and daily exercise to maintain funct. level at D/ C. Goal to be met by: 11/24/16 Progress towards goal: Progressing Goal #2: Score on Tinetti Assessment improved to 26/28. Goal to be met by: 11/24/16 Progress towards goal: Met Goal #3: Pt able to ascend/descend basement stairs with min. difficulty. Goal to be met by: 11/24/16 Progress towards goal: Progressing Goal #4: Pt able to perform household activites/community distances w/ min. fatigue. Goal to be met by: 11/24/16 Progress towards goal: Progressing Plan PLAN OF CARE EXPIRES ON:: 11/24/16 ORDER # VISITS AND/OR THROUGH DATE: 11/24/16 PLAN: Continue Plan of Care
--- NOTE | 2016-11-06 16:02 | RS.OPPTDN ---
Subjective Date of Note: 11/06/16 Visit #: 13 Date of Evaluation: 10/01/16 Payer Source: MEDICARE Treatment Diagnosis: LE stiffness, LE weakness, decreased mobility, Parkinson's Disease Current Subjective/complaints:: Patient reports performing exercises at home. States he has felt better the last couple of days. Blood pressure this morning was 118/80. States he feels he is doing some of the exercises incorrectly when he performs them at home. Balance System Training - Balance Training Comments Limits of Stability training today with platform locked on easy setting , 60% in 42 seconds. Interventions - Exercise/Activities/Manual Therapy Exercises/Activities: Performed 7 exercises of the LSVT BIG program. Verbal cues given to perform all exercises appropriately. Patient continues to need verbal cues for more upright posture or more movement of UE or LE to perform exercises correctly. Performed each X 10 reps. Performed BIG walking in department for exaggerated arm swing with steps X 8 reps. Patient needs assistance at times to initiate correctly. Patient performed limits of stability activity with unlocked at level 10 X 2 reps. Then perform same activity with platform locked with foam pad. Performs scapular retraction on multi-gym with 20 lbs , 10 reps X 3 sets to strengthen posterior postural muscles. Also performed bilateral shoulder flexion with 3# wand in sitting, 2 sets of 10 reps, and diagonal pattern reaching with unweight ball for trunk rotation. Stretches in doorway to stretch pec major. Performed high knee flexion of left LE with ambulation on treadmill X 3 @ .9 mph for 45 seconds each time, for carry over to effectively clear the left LE during ambulation. Manual Therapy: NA HOME EXERCISE PROGRAM: pec stretch (corner), 7 LSVT Big exercises - Charges Total Direct Minutes: 36 mins Total Treatment Time: 36 mins (time does not include LSVT Big exercises) Procedures billed for this date of service:: EX 2 Assessment: Patient needing assistance to perform LSVT Big exercises correctly. He needs to be able to perform them correctly so that his HEP is effective. Demonstrates improved score on Limits of Stability testing . Demonstrates need for continued therapy to ensure correctly performing HEP and progression of balance activities and trunk rotation and strengthening. Patient Education: Education of diagnosis, Body/Joint mechanics, Home Exercise Program Patient demonstrates compliance with HEP?: Yes Short Term Goals Goal #1: Pt independent and compliant with initial HEP. Goal to be met by: 10/19/16 Progress towards Goal:: Met Goal #2: Left hip flexion strength 4/5. Goal to be met by: 10/19/16 Progress towards Goal:: Met Goal #3: Lower Trunk rotation 75% of normal range. Goal to be met by: 10/26/16 Progress towards Goal:: Met Goal #4: Pt able to touch elbows & back of hands to wall w/ wall yvonne stretch. Goal to be met by: 10/26/16 Progress towards Goal:: Progressing [facility] Goals Goal #1: Pt knows to cont. HEP and daily exercise to maintain funct. level at D/ C. Goal to be met by: 11/24/16 Progress towards goal: Progressing Goal #2: Score on Tinetti Assessment improved to 26/28. Goal to be met by: 11/24/16 Progress towards goal: Met Goal #3: Pt able to ascend/descend basement stairs with min. difficulty. Goal to be met by: 11/24/16 Progress towards goal: Progressing Goal #4: Pt able to perform household activites/community distances w/ min. fatigue. Goal to be met by: 11/24/16 Progress towards goal: Progressing Plan PLAN OF CARE EXPIRES ON:: 11/24/16 ORDER # VISITS AND/OR THROUGH DATE: 11/24/16 Comments:: Continue to advance balance activities and focus on performing all exercises for HEP correctly.
--- NOTE | 2016-11-09 14:49 | RS.OPPTDN ---
Subjective Date of Note: 11/09/16 Visit #: 14 Date of Evaluation: 10/01/16 Payer Source: MEDICARE Treatment Diagnosis: LE stiffness, LE weakness, decreased mobility, Parkinson's Disease Current Subjective/complaints:: Patient reports blood pressure 130/80 this am. States he feels good today. Interventions - Exercise/Activities/Manual Therapy Exercises/Activities: Performed 7 exercises of the LSVT BIG program. Performed each X 10 reps. Verbal cues given to extend head for more upright posture during exercises. Also instructed to control the movement rather than using momentum to swing the arms. Performed BIG walking in department for exaggerated arm swing with steps X 8 reps. Patient initiates 5/8 times correctly. Patient performed limits of stability activity with unlocked at level 10 X 2 reps. Perform random control balance activity to improve balance in unpredictable directions. Performs scapular retraction on multi-gym with 20 lbs , 10 reps X 3 sets to strengthen posterior postural muscles. Also performed bilateral shoulder flexion with 3# wand in sitting, 2 sets of 10 reps, and diagonal pattern reaching with unweight ball for trunk rotation. Stretches in doorway to stretch pec major. Performed sit to stand from table lowered to 16 inches from floor X 10 reps with arms out in front of him. Performed high knee flexion of left LE with ambulation on treadmill X 3 @ .9 mph for 45 seconds each time, for carry over to effectively clear the left LE during ambulation. Blood pressure 126/[address] activities, and 122/80 following exercises. Total minutes of Exercise: 36 mins (not including LSVT exercises) Manual Therapy: NA HOME EXERCISE PROGRAM: pec stretch (corner), 7 LSVT Big exercises - Charges Total Direct Minutes: 36 mins Total Treatment Time: 55 mins Procedures billed for this date of service:: EX2 Assessment: Patient continues to need cueing to perform LSVT exercises correctly. Demonstrates more stable blood pressure today with activities. He will benefit from continued activities to improve safety and ease with ambulation and mobility . Patient demonstrates compliance with HEP?: Yes Short Term Goals Goal #1: Pt independent and compliant with initial HEP. Goal to be met by: 10/19/16 Progress towards Goal:: Met Goal #2: Left hip flexion strength 4/5. Goal to be met by: 10/19/16 Progress towards Goal:: Met Goal #3: Lower Trunk rotation 75% of normal range. Goal to be met by: 10/26/16 Progress towards Goal:: Met Goal #4: Pt able to touch elbows & back of hands to wall w/ wall yvonne stretch. Goal to be met by: 10/26/16 Progress towards Goal:: Progressing [facility] Goals Goal #1: Pt knows to cont. HEP and daily exercise to maintain funct. level at D/ C. Goal to be met by: 11/24/16 Progress towards goal: Progressing Goal #2: Score on Tinetti Assessment improved to 26/28. Goal to be met by: 11/24/16 Progress towards goal: Met Goal #3: Pt able to ascend/descend basement stairs with min. difficulty. Goal to be met by: 11/24/16 Progress towards goal: Progressing Goal #4: Pt able to perform household activites/community distances w/ min. fatigue. Goal to be met by: 11/24/16 Progress towards goal: Progressing Plan PLAN OF CARE EXPIRES ON:: 11/24/16 ORDER # VISITS AND/OR THROUGH DATE: 11/24/16 PLAN: Continue Plan of Care
--- NOTE | 2016-11-11 16:30 | RS.OPPTDN ---
Subjective Date of Note: 11/11/16 Visit #: 15 Date of Evaluation: 10/01/16 Payer Source: MEDICARE Treatment Diagnosis: LE stiffness, LE weakness, decreased mobility, Parkinson's Disease Current Subjective/complaints:: Patient states he has a catch in his back today. States he got up to take the dog out early this morning and has had pain on the left side of the low back since. - Heat/Cryotherapy Treatment: Hot Pack (X 10 mins to low back prior to exercises) Interventions - Exercise/Activities/Manual Therapy Exercises/Activities: Performed 4 exercises of the LSVT BIG program. Performed each X 10 reps. Patient unable to perform exercises requiring twisting of the spine of bending over due to back pain. Reminded to control the movement rather than using momentum to swing the arms with each exercise. Patient performed limits of stability activity with locked at level 10 X 2 reps. . Performed high knee flexion of left LE with ambulation on treadmill X 3 @ .9 mph for 45 seconds each time, for carry over to effectively clear the left LE during ambulation. blood pressure 130/82. Total minutes of Exercise: 35 mins Manual Therapy: NA HOME EXERCISE PROGRAM: pec stretch (corner), 7 LSVT Big exercises - Charges Total Direct Minutes: 21 mins Total Treatment Time: 35 mins Procedures billed for this date of service:: HP, EX Assessment: patient unable to tolerate most exercises today due to recent left low back pain. Performed activites for balance and left hip flexion strengthening. Patient Education: Body/Joint mechanics, Home Exercise Program Short Term Goals Goal #1: Pt independent and compliant with initial HEP. Goal to be met by: 10/19/16 Progress towards Goal:: Met Goal #2: Left hip flexion strength 4/5. Goal to be met by: 10/19/16 Progress towards Goal:: Met Goal #3: Lower Trunk rotation 75% of normal range. Goal to be met by: 10/26/16 Progress towards Goal:: Met Goal #4: Pt able to touch elbows & back of hands to wall w/ wall yvonne stretch. Goal to be met by: 10/26/16 Progress towards Goal:: Progressing Optical Coating Technician Goals Goal #1: Pt knows to cont. HEP and daily exercise to maintain funct. level at D/ C. Goal to be met by: 11/24/16 Progress towards goal: Progressing Goal #2: Score on Tinetti Assessment improved to 26/28. Goal to be met by: 11/24/16 Progress towards goal: Met Goal #3: Pt able to ascend/descend basement stairs with min. difficulty. Goal to be met by: 11/24/16 Progress towards goal: Progressing Goal #4: Pt able to perform household activites/community distances w/ min. fatigue. Goal to be met by: 11/24/16 Progress towards goal: Progressing Plan PLAN OF CARE EXPIRES ON:: 11/24/16 ORDER # VISITS AND/OR THROUGH DATE: 11/24/16 PLAN: Continue Plan of Care
== END 2016-11-12 ==
PROVIDERS: ATTEND Specialist
DX: G20 Parkinson's disease (principal)

== ENCOUNTER 2016-11-23 14:00 | Outpatient (RCR) ==
--- NOTE | 2016-11-20 09:07 | RS.OPPTDN ---
Subjective Date of Note: 11/13/16 Visit #: 16 Date of Evaluation: 10/01/16 Payer Source: MEDICARE Treatment Diagnosis: LE stiffness, LE weakness, decreased mobility, Parkinson's Disease Current Subjective/complaints:: Patient states he feels blood pressure is staying in a good range. States blood pressure was 130/80 this am. Reports SOA with ambulating long distances. Feels he is more stable with his ambulation and states he is able to get up out of his recliner or chair in the kitchen easier. Pain Assessment - Pain Description Pain Location: low back Current Pain Intensity: low Balance System Training - Level 1 Postural Stability/Symmetry #1 Training Mode: Postural Stability Training Vision: Eyes Open Task: Cognitive/Dual Tasks Platform Stability Level (1-12): 12,10 Stance: Normal Reps: side to side, diagonal #2 Training Mode: Postural Stability Training Platform Stability Level (1-12): 12,10 Stance: Narrow Reps: X 10 reps each - Level 2 Dynamic Weight Shifting #1 Training Mode: Random Control Skill Level (1-3): 1 Platform Stability Level (1-12): 12 Reps: 2 Interventions - Exercise/Activities/Manual Therapy Exercises/Activities: Performed 7 exercises of the LSVT BIG program. Performed each X 10 reps. Performed on steps, ascending/descending 6 inch stairs. Patient needs cueing for increase hip flexion to clear step with left LE. Patient needed rest breaks due to feeling short of breath. No dizziness. Blood pressure 126/76. . . Performed high knee flexion of left LE with ambulation on treadmill X 3 @ .9 mph for 45 seconds each time, for carry over to effectively clear the left LE during ambulation and stair climbing. Total minutes of Exercise: 19 mins Manual Therapy: NA HOME EXERCISE PROGRAM: pec stretch (corner), 7 LSVT Big exercises - Charges Total Direct Minutes: 37 mins total (19 ex/18 neuro) Total Treatment Time: 55 mins Procedures billed for this date of service:: Ex, Neuro Assessment: Patient presents reporting more stable blood pressure this week. He is performing his exercises at home. He reports more stable ambulation and greater ease getting up from his recliner at home. Patient Education: Home Exercise Program Patient demonstrates compliance with HEP?: Yes Short Term Goals Goal #1: Pt independent and compliant with initial HEP. Goal to be met by: 08/07/17 Progress towards Goal:: Met Goal #2: Left hip flexion strength 4/5. Goal to be met by: 10/19/16 Progress towards Goal:: Met Goal #3: Lower Trunk rotation 75% of normal range. Goal to be met by: 10/26/16 Progress towards Goal:: Met Goal #4: Pt able to touch elbows & back of hands to wall w/ wall yvonne stretch. Goal to be met by: 10/26/16 Progress towards Goal:: Progressing Group Home Goals Goal #1: Pt knows to cont. HEP and daily exercise to maintain funct. level at D/ C. Goal to be met by: 11/24/16 Progress towards goal: Progressing Goal #2: Score on Tinetti Assessment improved to 26/28. Goal to be met by: 11/24/16 Progress towards goal: Met Goal #3: Pt able to ascend/descend basement stairs with min. difficulty. Goal to be met by: 11/24/16 Progress towards goal: Progressing Goal #4: Pt able to perform household activites/community distances w/ min. fatigue. Goal to be met by: 11/24/16 Progress towards goal: Progressing Plan PLAN OF CARE EXPIRES ON:: 11/24/16 ORDER # VISITS AND/OR THROUGH DATE: 11/24/16 PLAN: Continue Plan of Care
--- NOTE | 2016-11-20 09:07 | RS.OPPTDN ---
Subjective Date of Note: 11/18/16 Visit #: 17 Date of Evaluation: 10/01/16 Payer Source: MEDICARE Treatment Diagnosis: LE stiffness, LE weakness, decreased mobility, Parkinson's Disease Current Subjective/complaints:: Patient reports not feeling well today. States he feels weak and has felt lightheaded today. States he did not take his blood pressure this morning. States he would still like to see if he could perform some exercises. Interventions - Exercise/Activities/Manual Therapy Exercises/Activities: Blood pressure taken prior to exercise: 92/60. Performed high knee flexion of left LE with ambulation on treadmill X 2 @ .9 mph for 45 seconds each time. Blood pressure immediately taken following this activity: 77/ 47. Patient was assisted to treatment table to rest. After 5-10 mins Blood pressure was 95/59. No further activity was attempted. Patient allowed to rest. Blood pressure taken again was 96/65. Manual Therapy: NA HOME EXERCISE PROGRAM: pec stretch (corner), 7 LSVT Big exercises - Charges Total Direct Minutes: 2 mins of actual activity Total Treatment Time: 25 mins Procedures billed for this date of service:: no charges Assessment: Patient with low blood pressure today. Unable to tolerate activities. Will attempt to perform activities on next visit if blood pressure is stable. Patient demonstrates compliance with HEP?: Yes Short Term Goals Goal #1: Pt independent and compliant with initial HEP. Goal to be met by: 10/19/16 Progress towards Goal:: Met Goal #2: Left hip flexion strength 4/5. Goal to be met by: 10/19/16 Progress towards Goal:: Met Goal #3: Lower Trunk rotation 75% of normal range. Goal to be met by: 10/26/16 Progress towards Goal:: Met Goal #4: Pt able to touch elbows & back of hands to wall w/ wall yvonne stretch. Goal to be met by: 10/26/16 Progress towards Goal:: Partially Met Career Consultant Goals Goal #1: Pt knows to cont. HEP and daily exercise to maintain funct. level at D/ C. Goal to be met by: 11/24/16 Progress towards goal: Progressing Goal #2: Score on Tinetti Assessment improved to 26/28. Goal to be met by: 11/24/16 Progress towards goal: Met Goal #3: Pt able to ascend/descend basement stairs with min. difficulty. Goal to be met by: 11/24/16 Progress towards goal: Progressing Goal #4: Pt able to perform household activites/community distances w/ min. fatigue. Goal to be met by: 11/24/16 Progress towards goal: Progressing Plan PLAN OF CARE EXPIRES ON:: 11/24/16 ORDER # VISITS AND/OR THROUGH DATE: 11/24/16 PLAN: Continue Plan of Care
--- NOTE | 2016-11-23 08:56 | RS.OPPTDN ---
Subjective Date of Note: 11/20/16 Visit #: 17 Date of Evaluation: 10/01/16 Payer Source: MEDICARE Treatment Diagnosis: LE stiffness, LE weakness, decreased mobility, Parkinson's Disease Current Subjective/complaints:: Patient reports feeling much better today. States he has no dizziness today. States he did not take his blood pressure medicine yesterday or today. Pain Assessment - Pain Description Pain Location: low back Current Pain Intensity: low Balance System Training - Level 1 Postural Stability/Symmetry #1 Training Mode: Postural Stability Training Vision: Eyes Open Task: None Stance: Normal Reps: side to side, diagonal #2 Reps: X 10 reps each - Level 2 Dynamic Weight Shifting #1 Training Mode: Limits of Stability Skill Level (1-3): 2 Platform Stability Level (1-12): 12 Reps: 2 #2 Training Mode: Limits of Stability Skill Level (1-3): 2 Platform Stability Level (1-12): 10 Reps: 2 #3 Training Mode: Random Control Skill Level (1-3): 1 Platform Stability Level (1-12): 12 Reps: 1 Interventions - Exercise/Activities/Manual Therapy Exercises/Activities: Blood pressure taken prior to exercise: 137/82. Performed all LSVT Big exercises X 10 reps. Verbal cues to perform exercises correctly. Following Big Exercises, BP 119/78. Patient reports no symtpoms. Continued activities: Big walking X 6 reps. Scapular retraction. Performed on treadmill @ .9 mph X 45 seconds with focus on exaggerated left hip flexion to carry over to gait. Patient received education on blood pressure and activity. Discussed increasing his fluid intake and sometimes it is recommended to increase salt intake. Discussed BP issues with Parkinson's medications and orthostatic hypotension. Total minutes of Exercise: X 36 mins Manual Therapy: NA HOME EXERCISE PROGRAM: pec stretch (corner), 7 LSVT Big exercises - Charges Total Direct Minutes: 36 mins Total Treatment Time: 56 mins Procedures billed for this date of service:: EX, Neuro Short Term Goals Goal #1: Pt independent and compliant with initial HEP. Goal to be met by: 10/19/16 Progress towards Goal:: Met Goal #2: Left hip flexion strength 4/5. Goal to be met by: 10/19/16 Progress towards Goal:: Met Goal #3: Lower Trunk rotation 75% of normal range. Goal to be met by: 10/26/16 Progress towards Goal:: Met Goal #4: Pt able to touch elbows & back of hands to wall w/ wall yvonne stretch. 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 HEP and daily exercise to maintain funct. level at D/ C. Goal to be met by: 11/24/16 Progress towards goal: Progressing Goal #2: Score on Tinetti Assessment improved to 26/28. Goal to be met by: 11/24/16 Progress towards goal: Met Goal #3: Pt able to ascend/descend basement stairs with min. difficulty. Goal to be met by: 11/24/16 Progress towards goal: Progressing Goal #4: Pt able to perform household activites/community distances w/ min. fatigue. Goal to be met by: 11/24/16 Progress towards goal: Progressing Plan PLAN OF CARE EXPIRES ON:: 11/24/16 ORDER # VISITS AND/OR THROUGH DATE: 11/24/16 PLAN: Continue Plan of Care Comments:: Will see for one more visit for further education and summary of HEP.
== END 2016-12-12 ==
PROVIDERS: ATTEND Specialist
DX: M54.5 Low back pain (principal); G89.29 Other chronic pain; G20 Parkinson's disease

== ENCOUNTER 2017-08-20 10:44 | Outpatient (CLI) ==
--- NOTE | 2017-08-20 12:43 | CT ---
EXAM: CT lumbar spine without contrast. HISTORY: Intermittent claudication. COMPARISON: 08/18/2012. TECHNIQUE: Multiple axial images of the lumbar spine were obtained without intravenous contrast. Im ages were reformatted in the sagittal and coronal planes. FINDINGS: Curvature and alignment are normal. Vertebral body and intervertebral disc heights are ma intained. No fracture or subluxation detected. Ligamentous calcification noted throughout the lumba r spine. Paravertebral soft tissues without acute abnormality. T12-L1: Facet arthropathy without neural compromise. L1-2: Broad-based disc bulge and facet arthropathy with moderate central canal stenosis and bilatera l neural foraminal narrowing. L2-3: Broad-based disc bulge, facet arthropathy and thickening of the ligamentum flavum with moderat e central canal stenosis and mild neural foraminal narrowing. L3-4: Broad-based disc bulge, facet arthropathy and thickening of ligamentum flavum with moderate ce ntral canal stenosis and moderate neural foraminal narrowing. L4-5: Broad-based disc bulge, facet arthropathy and thickening of ligamentum flavum with severe cent ral canal stenosis and moderate neural foraminal narrowing. L5-S1: Broad-based disc bulge and facet arthropathy with mild neural foraminal narrowing. IMPRESSION: Stable severe degenerative changes.
== END 2017-08-20 10:45 | disposition home or self-care (01) ==
LOC: RAD 10:44
PROVIDERS: ATTEND Family Medicine
DX: G95.19 Other vascular myelopathies (principal)

== ENCOUNTER 2017-10-12 11:00 | Outpatient (RCR) ==
--- NOTE | 2017-09-13 16:00 | RS.OPPTEV2 ---
Date of Note: 09/13/17 Visit #: 1 Date of Evaluation: 09/13/17 Payer Source: MEDICARE Surgery Performed?: No Treatment Diagnosis: OA of spine, Parkinson's disease History of Condition/Mechanism of Injury:: pt reports that he has been suffering with low back pain for last 2 yrs. pt states that he cannot tolerate standing or walking for very long without having to sit down due to significant back pain. Prior Level of Function.....Patient was independent with: ADL's, Self Care, Caregiving, Ambulation/Mobility, Community Integration/Access Functional Limitations: ADL's, Pushing, Pulling, Lifting, Carrying, Standing, Bending, Squatting, Ambulation, Community Access/Integration Current Subjective/complaints:: pt states that he is not hurting today, however states that if he stands or walks for very long has low back pain and weakness in BLE. Treatment Side (optional): N/A *Precautions: avoid bending, lifting and twisting Medical History Medical History: Hypertension Medical History Comments:: Diagnosed with Parkinson's ~ 4 years ago. Restless leg syndrome, CAD Surgical History Comments:: cardiac stent Smoking Status: Former smoker Diagnostic Testing/Imaging:: lumbar CT 08/20/17: broad based disc bulging 5 levels L1-S1, with facet arthropathy and thickening of ligamentum flavum with mod central canal stenosis and moderate neural foraminial narrowing L2-3, L3-4, with severe central canal stenosis L4-5. Hx Home Medications: Sinemet, cozaar, ASA, crestor, requip, toprol, synthroid, norvasc, iron Patient's Goals: decrease muscle tightness and pain to be able to perform normal household duties. Pain Assessment - Pain Description Pain Location: lumbar spine Pain Description: Sharp, Aching Pain Description: sharp pain across low back and B LE feel weak Current Pain Intensity: 0 at rest Other Comments regarding Pain:: States pain begins when standing or amb very long. Functional Outcome Measure Oswestry LBP: 13 (26%) - G Codes & Severity Modifier G Codes & Modifier: Mobility walking and moving around current: CJ. Mobility walking and moving around goal: CI Source of G Code score: oswestry low back pain scale Observation - Observation Inspection: significant tightness in B hamstring, piriformis and lumbar paraspinals, R side is tighter than L. Posture: Forward Head, Rounded Shoulders, Increased Thoracic Kyphosis, Decreased Lumbar Lordosis Handedness: Left Gait - Gait Pattern General Gait Pattern Observation: Crouched Gait Gait Comments: pt amb with flexed posture, decreased heel strike/toe off with shuffling on LLE, no LOB and no use of AD General Range of Motion: BUE WFL's. BLE WFL's Muscle Strength: BUE 4+ to 5/5. RLE hip flex 4+/5, knee flex/ext 5/5, ankle DF/ PF 5/5. LLE hip flex 4/5, knee flex/ext 4+/5, ankle DF/PF 4+/5 - ROM Lumbar Flexion: Hand reach to patellae Sidebending to Left: Reach to Mid-thigh Sidebending to Right: Reach to Mid-thigh Lumbar Spine ROM Limitations: Soft Tissue Tightness, Muscle Weakness, Pain Comments: pt with trigger point noted in L lumbar area, - Special Tests SLR Test: Negative Left, Negative Right Seated Dural Stretch Test: Negative Left, Negative Right Palpation Palpation Findings: Tenderness, Trigger Point Comments:: trigger point and tenderness noted in L lumbar area. Sensation - Sensation Right Upper Extremity: Intact/Normal Left Upper Extremity: Intact/Normal Right Lower Extremity: Intact/Normal Left Lower Extremity: Intact/Normal Balance - Sitting Balance Static Sitting Balance: Normal Dynamic Sitting Balance: Normal - Standing Balance Static Standing Balance: Good Dynamic Standing Balance: Fair - Comments Balance Assessment Comments: pt with no LOB noted with gait, however with slight festinating gait and flexed posture - Treatment Modality: Electrical Stim Unattended Parameters/Method Applied: IFC x 20 mins at 12ma Treatment Area: lumbar area Patient Position: Right Sidelying - Heat/Cryotherapy Treatment: Hot Pack Comments:: lumbar area Interventions - Exercise/Activities/Manual Therapy Exercises/Activities: pt received hamstring stretches, piriformis stretches, and education on posture. Manual Therapy: NA HOME EXERCISE PROGRAM: pt given written HEP including: hamstring stretch, piriformis stretch, lumbar rotation stretch, standing extention, - Charges Timed Code Treatment Minutes: 41 Total Treatment Time: 62 Procedures billed for this date of service:: eval low, estim unattended, hot pack EVALUATION COMPLEXITY LEVEL EVALUATION COMPLEXITY LEVEL: HISTORY: Low (parkinson's, htn), EXAM OF BODY SYSTEMS: Medium (pain, posture, muscle tightness, strength), CLINICAL PRESENTATION: Medium (evolving), CLINICAL DECISION MAKING: Low Assessment Assessment: pt presents with significant muscle tightness B hamstrings R worse than L, B piriformis, as well as lumbar paraspinals. pt with limited ability to stand or walk due to back pain with weakness BLE L worse than R. Patient Education: Home Exercise Program, Education of Plan of Care Rehab Potential: Good Short Term Goals Goal #1: pt independent with initial HEP Goal to be met by: 10/04/17 Goal #2: pt with decreased hamstring/pirformis tightness by 50% Goal to be met by: 10/04/17 Goal #3: Lumbar lower trunk rotation improved range by 50%. Goal to be met by: 10/04/17 Goal #4: pt report ability to walk from car to PT dept with no increase in LBP Goal to be met by: 10/04/17 Half-Way Goals Goal #1: pt report increased ability to perform household activities with less pain Goal to be met by: 10/25/17 Goal #2: Oswestry low back pain score < 10 Goal to be met by: 10/25/17 Goal #3: Improved hamstring, piriformis and lower trunk flexiblity to WFL's Goal to be met by: 10/25/17 Goal #4: Improved LLE strength 4+ to 5/5 Goal to be met by: 10/25/17 Plan - Treatment to be Provided Procedures: Therapeutic Exercises, Therapeutic Activity, Manual Therapy, Massage , Patient Education Modalities: Electrical Stimulation, Ultrasound/Phonophoresis, Cryotherapy, Hot Packs, No Modalities - Treatment Plan Frequency: 2 X week Duration: 6 weeks ORDER # VISITS AND/OR THROUGH DATE: 10/25/17 - Treatment Code (1) Hamstring tightness of both lower extremities Code(s): M62.9 - DISORDER OF MUSCLE, UNSPECIFIED (2) Leg weakness Code(s): M62.81 - MUSCLE WEAKNESS (GENERALIZED) Qualifiers: Laterality: left Qualified Code(s): R29.898 - Other symptoms and signs involving the musculoskeletal system (3) Low back pain Code(s): M54.5 - LOW BACK PAIN Qualifiers: Chronicity: chronic Back pain laterality: bilateral Sciatica presence: unspecified whether sciatica present Qualified Code(s): M54.5 - Low back pain (4) Parkinson disease Code(s): G20 - PARKINSON'S DISEASE (5) Weakness of trunk musculature Code(s): M62.81 - MUSCLE WEAKNESS (GENERALIZED)
--- NOTE | 2017-09-16 14:42 | RS.OPPTDN ---
Subjective Date of Note: 09/16/17 Visit #: 2 Date of Evaluation: 09/13/17 Payer Source: MEDICARE Treatment Diagnosis: OA of spine, Parkinson's disease Current Subjective/complaints:: pt states he has been trying his exercises and feels they are going ok. pt states that he doesn't really have pain this pm, but his legs feel weak. *Precautions: avoid bending, lifting and twisting Pain Assessment - Pain Description Pain Location: lumbar Pain Description: Tightness - Treatment Modality: Electrical Stim Unattended Parameters/Method Applied: IFC x 20 mins at 12ma Treatment Area: lumbar area Patient Position: Right Sidelying - Heat/Cryotherapy Treatment: Hot Pack Comments:: lumbar area Interventions - Exercise/Activities/Manual Therapy Exercises/Activities: pt received hamstring stretches, performed piriformis stretches, single knee to chest, trunk rotation stretch, pt performed isometric hip add, resisted hip abd, resisted hip flex x 10 reps. Total minutes of Exercise: 32 Manual Therapy: NA HOME EXERCISE PROGRAM: pt given written HEP including: hamstring stretch, piriformis stretch, lumbar rotation stretch, standing extention, - Charges Timed Code Treatment Minutes: 32 Total Treatment Time: 61 Procedures billed for this date of service:: ex 2, estim unattended, hot pack Assessment: pt continues with muscle tightness, in lumbar area, hamstrings, piriformis. pt progressing with ex. Patient Education: Home Exercise Program, Education of Plan of Care Patient demonstrates compliance with HEP?: Yes Short Term Goals Goal #1: pt independent with initial HEP Goal to be met by: 10/04/17 Progress towards Goal:: Progressing Goal #2: pt with decreased hamstring/pirformis tightness by 50% Goal to be met by: 10/04/17 Progress towards Goal:: Progressing Goal #3: Lumbar lower trunk rotation improved range by 50%. Goal to be met by: 10/04/17 Progress towards Goal:: Progressing Goal #4: pt report ability to walk from car to PT dept with no increase in LBP Goal to be met by: 10/04/17 Progress towards Goal:: Progressing Intermediate Goals Goal #1: pt report increased ability to perform household activities with less pain Goal to be met by: 10/25/17 Goal #2: Oswestry low back pain score < 10 Goal to be met by: 10/25/17 Goal #3: Improved hamstring, piriformis and lower trunk flexiblity to WFL's Goal to be met by: 10/25/17 Goal #4: Improved LLE strength 4+ to 5/5 Goal to be met by: 10/25/17 Plan PLAN OF CARE EXPIRES ON:: 10/25/17 ORDER # VISITS AND/OR THROUGH DATE: 10/25/17 PLAN: continue to progress with ex program, stretching and modalities to decrease pain and muscle tightness.
--- NOTE | 2017-09-20 13:41 | RS.OPPTDN ---
Subjective Date of Note: 09/20/17 Visit #: 3 Date of Evaluation: 09/13/17 Payer Source: MEDICARE Treatment Diagnosis: OA of spine, Parkinson's disease Current Subjective/complaints:: pt states he is not really having any pain today , just feels weak. pt states he has been practicing HEP and feels he is improving. *Precautions: avoid bending, lifting and twisting Pain Assessment - Pain Description Pain Location: LBP Current Pain Intensity: 0 at rest Interventions - Exercise/Activities/Manual Therapy Exercises/Activities: pt received hamstring stretches, piriformis, and knee to chest stretching. pt also rode recumbant bike x 5 mins, LAQ, seated hip flex with 1 1/2#wt 2 sets of 10 reps, forward lunges x 10, PF with green t band x 2 sets of 10 reps. standing wall stretch, scapular retraction x 5 reps. Total minutes of Exercise: 39 Manual Therapy: NA HOME EXERCISE PROGRAM: pt given written HEP including: hamstring stretch, piriformis stretch, lumbar rotation stretch, standing extention, - Charges Timed Code Treatment Minutes: 46 Total Treatment Time: 39 Procedures billed for this date of service:: exercise 3 Assessment: pt progressing with posture as well as strengthening. pt compliant with HEP. pt continues with flexed posture and LBP with extended standing or amb. pt has met STG1, and progressing toward remaning goals. Patient Education: Home Exercise Program, Education of Plan of Care Patient demonstrates compliance with HEP?: Yes Short Term Goals Goal #1: pt independent with initial HEP Goal to be met by: 10/04/17 Progress towards Goal:: Progressing Goal #2: pt with decreased hamstring/pirformis tightness by 50% Goal to be met by: 10/04/17 Progress towards Goal:: Progressing Goal #3: Lumbar lower trunk rotation improved range by 50%. Goal to be met by: 10/04/17 Progress towards Goal:: Progressing Goal #4: pt report ability to walk from car to PT dept with no increase in LBP Goal to be met by: 10/04/17 Progress towards Goal:: Progressing Shelter Goals Goal #1: pt report increased ability to perform household activities with less pain Goal to be met by: 10/25/17 Goal #2: Oswestry low back pain score < 10 Goal to be met by: 10/25/17 Goal #3: Improved hamstring, piriformis and lower trunk flexiblity to WFL's Goal to be met by: 10/25/17 Goal #4: Improved LLE strength 4+ to 5/5 Goal to be met by: 10/25/17 Plan PLAN OF CARE EXPIRES ON:: 10/25/17 ORDER # VISITS AND/OR THROUGH DATE: 10/25/17 PLAN: continue to progress with stretching and strengthening as well as balance actvities.
--- NOTE | 2017-09-27 14:06 | RS.OPPTDN ---
Subjective Date of Note: 09/24/17 Visit #: 4 Date of Evaluation: 09/13/17 Payer Source: MEDICARE Treatment Diagnosis: OA of spine, Parkinson's disease Current Subjective/complaints:: pt states his back is doing better. He states he has been trying to do stretches at home. *Precautions: avoid bending, lifting and twisting Pain Assessment - Pain Description Pain Location: low back pain Current Pain Intensity: 0 at rest Interventions - Exercise/Activities/Manual Therapy Exercises/Activities: pt received hamstring, piriformis and lower trunk rotation stretcing. pt rode bike x 5 mins, leg press 60lbs 2 sets of 10 reps, forward and side lunges 2 sets of 10 BLE. scapular retraction with green tband UE extended and with elbows flexed 2 sets of 10 each, isometric hip add 2 sets of 10, hip abd and hip flex with green tband 2 sets of 10 Total minutes of Exercise: 42 Manual Therapy: NA HOME EXERCISE PROGRAM: pt given written HEP including: hamstring stretch, piriformis stretch, lumbar rotation stretch, standing extention, - Charges Timed Code Treatment Minutes: 45 Total Treatment Time: 58 Procedures billed for this date of service:: ex 3 Assessment: pt is progressing well with ex, back pain continues only with prolonged walking or standing, no c/o pain during treatment. pt posture is improving. Patient Education: Home Exercise Program, Education of Plan of Care Patient demonstrates compliance with HEP?: Yes Short Term Goals Goal #1: pt independent with initial HEP Goal to be met by: 10/04/17 Progress towards Goal:: Met Goal #2: pt with decreased hamstring/pirformis tightness by 50% Goal to be met by: 10/04/17 Progress towards Goal:: Progressing Goal #3: Lumbar lower trunk rotation improved range by 50%. Goal to be met by: 10/04/17 Progress towards Goal:: Progressing Goal #4: pt report ability to walk from car to PT dept with no increase in LBP Goal to be met by: 10/04/17 Progress towards Goal:: Met Golf Caddy Goals Goal #1: pt report increased ability to perform household activities with less pain Goal to be met by: 10/25/17 Progress towards goal: Progressing Goal #2: Oswestry low back pain score < 10 Goal to be met by: 10/25/17 Progress towards goal: Progressing Goal #3: Improved hamstring, piriformis and lower trunk flexiblity to WFL's Goal to be met by: 10/25/17 Progress towards goal: Progressing Goal #4: Improved LLE strength 4+ to 5/5 Goal to be met by: 10/25/17 Progress towards goal: Progressing Plan PLAN OF CARE EXPIRES ON:: 10/25/17 ORDER # VISITS AND/OR THROUGH DATE: 10/25/17 PLAN: continue to progress with ex for stretching, as well as to improve posture and strength due to parkinson's disease
--- NOTE | 2017-09-28 13:21 | RS.OPPTDN ---
Subjective Date of Note: 09/28/17 Visit #: 5 Date of Evaluation: 09/13/17 Payer Source: MEDICARE Treatment Diagnosis: OA of spine, Parkinson's disease Current Subjective/complaints:: pt states he is having less back pain with activity. Reports no back pain walking in from parking lot to PT dept. Reports he is trying to do HEP atleast 1x a day. *Precautions: avoid bending, lifting and twisting Pain Assessment - Pain Description Pain Location: low back pain Current Pain Intensity: 0 during therapy Interventions - Exercise/Activities/Manual Therapy Exercises/Activities: pt received knee to chest, hamstring, lower trunk rotation , heel cord stretching. pt performed scapular retraction with elbows flexed, elbows extended 2 sets of 10 reps. Standing extension stretch with shld abd, LAQ , seated hip flex 11/2lbs 2 sets of 10 reps, worked on gait stepping over objects forward and sideways, forward lunges with arms extended, side lunges with arms extended x 2 sets of 10 reps, rode restorator x 5mins, leg press 60lbs 3 sets of 10 reps. Total minutes of Exercise: 43 Manual Therapy: NA HOME EXERCISE PROGRAM: pt given written HEP including: hamstring stretch, piriformis stretch, lumbar rotation stretch, standing extention, - Charges Timed Code Treatment Minutes: 43 Total Treatment Time: 51 Procedures billed for this date of service:: exercise 3 Assessment: pt with decreased reports of LBP. pt with improved posture and gait technique with decreased shuffling. pt also with decreased hamstring and piriformis tightness. Feel pt would continue to benefit from skilled PT to focus on big movements to improve functional mobilty and decrease risk of falls. Patient Education: Home Exercise Program, Education of Plan of Care Patient demonstrates compliance with HEP?: Yes Short Term Goals Goal #1: pt independent with initial HEP Goal to be met by: 10/04/17 Progress towards Goal:: Met Goal #2: pt with decreased hamstring/pirformis tightness by 50% Goal to be met by: 10/04/17 Progress towards Goal:: Progressing Goal #3: Lumbar lower trunk rotation improved range by 50%. Goal to be met by: 10/04/17 Progress towards Goal:: Met Goal #4: pt report ability to walk from car to PT dept with no increase in LBP Goal to be met by: 10/04/17 Progress towards Goal:: Met Director Of Accounting Goals Goal #1: pt report increased ability to perform household activities with less pain Goal to be met by: 10/25/17 Progress towards goal: Progressing Goal #2: Oswestry low back pain score < 10 Goal to be met by: 10/25/17 Progress towards goal: Progressing Goal #3: Improved hamstring, piriformis and lower trunk flexiblity to WFL's Goal to be met by: 10/25/17 Progress towards goal: Progressing Goal #4: Improved LLE strength 4+ to 5/5 Goal to be met by: 10/25/17 Progress towards goal: Progressing Comments: LLE strength 4 to 4+/5 Plan PLAN OF CARE EXPIRES ON:: 10/25/17 ORDER # VISITS AND/OR THROUGH DATE: 10/25/17 PLAN: continue to focus on BIG movements and postural, strengthening activities to improve functional mobility and decrease risk of falls.
--- NOTE | 2017-09-30 13:22 | RS.OPPTDN ---
Subjective Date of Note: 09/30/17 Visit #: 6 Date of Evaluation: 09/13/17 Payer Source: MEDICARE Treatment Diagnosis: OA of spine, Parkinson's disease Current Subjective/complaints:: pt states he is doing better, he continues to have discomfort at times in back of his thighs/knees. *Precautions: avoid bending, lifting and twisting Pain Assessment - Pain Description Pain Location: BLE posterior thigh Pain Description: legs feel heavy at times Current Pain Intensity: 0 Interventions - Exercise/Activities/Manual Therapy Exercises/Activities: pt received BLE heel cord stretch, hamstring, piriformis, knee to chest, lower trunk rotation stretch. pt performed BLE LAQ, seated hip flex with 11/2 # weight 2 sets of 10 reps. Scapular retraction, PNF D1/D2, punch outs with green t band 2 sets of 10 reps. pt performed forward lunges focus on BIG movements with BUE ext, side lunges with extended reaching, 2 sets of 10 reps BLE. pt also sit to stand with UE extended with focus on posture 2 sets of 5 reps. pt rode bike x 5 mins, leg press 3 sets of 10 reps 60#. standing ext stretch against wall with UE extended. Total minutes of Exercise: 43 Manual Therapy: NA HOME EXERCISE PROGRAM: pt given written HEP including: hamstring stretch, piriformis stretch, lumbar rotation stretch, standing extention, - Charges Timed Code Treatment Minutes: 43 Total Treatment Time: 52 Procedures billed for this date of service:: exercise 3 Assessment: pt progressing with improved posture, decreased back pain. pt has met all STG's, pt is progressing toward LTG. Patient Education: Home Exercise Program, Education of Plan of Care Patient demonstrates compliance with HEP?: Yes Short Term Goals Goal #1: pt independent with initial HEP Goal to be met by: 10/04/17 Progress towards Goal:: Met Goal #2: pt with decreased hamstring/pirformis tightness by 50% Goal to be met by: 10/04/17 Progress towards Goal:: Met Goal #3: Lumbar lower trunk rotation improved range by 50%. Goal to be met by: 10/04/17 Progress towards Goal:: Met Goal #4: pt report ability to walk from car to PT dept with no increase in LBP Goal to be met by: 10/04/17 Progress towards Goal:: Met Halfway Goals Goal #1: pt report increased ability to perform household activities with less pain Goal to be met by: 10/25/17 Progress towards goal: Progressing Goal #2: Oswestry low back pain score < 10 Goal to be met by: 10/25/17 Progress towards goal: Progressing Goal #3: Improved hamstring, piriformis and lower trunk flexiblity to WFL's Goal to be met by: 10/25/17 Progress towards goal: Progressing Goal #4: Improved LLE strength 4+ to 5/5 Goal to be met by: 10/25/17 Progress towards goal: Progressing Plan PLAN OF CARE EXPIRES ON:: 10/25/17 ORDER # VISITS AND/OR THROUGH DATE: 10/25/17 PLAN: plan to continue to progress with focus on stretching, strengthening BLE as well as BIG movements to improve functional mobility.
--- NOTE | 2017-10-05 15:41 | RS.OPPTDN ---
Subjective Date of Note: 10/05/17 Visit #: 7 Date of Evaluation: 09/13/17 Payer Source: MEDICARE Treatment Diagnosis: OA of spine, Parkinson's disease Current Subjective/complaints:: pt states he feels a little 'wobbly" today. pt reports decreased back pain. *Precautions: avoid bending, lifting and twisting Interventions - Exercise/Activities/Manual Therapy Exercises/Activities: pt received BLE hamstring stretches, piriformis stretches , knee to chest, lower trunk rotation, double knee to chest. pt performed BLE LAQ, seated hip flex with 1 1/2# wts 2 sets of 10 reps, pt performed scapular retraction with elbow flex, scap retraction with elbow ext on multigym with 10# 2 sets of 10 reps. horizontal shld abd with thumbs up x 10 reps with red tband. sit to stand with UE extended x 10 reps, forward lunges BLE with UE extended 2 sets of 10 reps, rode bike x 6 mins, leg press 3 sets of 10 reps with 60lb. Total minutes of Exercise: 55 Manual Therapy: NA HOME EXERCISE PROGRAM: pt given written HEP including: hamstring stretch, piriformis stretch, lumbar rotation stretch, standing extention, - Charges Timed Code Treatment Minutes: 55 Total Treatment Time: 62 Procedures billed for this date of service:: exercise 4 Assessment: pt progressing well, pt has met all STG's and progressing toward remaining goals. pt has improved with decreased LBP, improved flexibility as well as improved LE strength. pt continues with decreased strength BLE, decreased flexibility in LE and trunk. Patient Education: Home Exercise Program, Education of Plan of Care Patient demonstrates compliance with HEP?: Yes Short Term Goals Goal #1: pt independent with initial HEP Goal to be met by: 10/04/17 Progress towards Goal:: Met Goal #2: pt with decreased hamstring/pirformis tightness by 50% Goal to be met by: 10/04/17 Progress towards Goal:: Met Goal #3: Lumbar lower trunk rotation improved range by 50%. Goal to be met by: 10/04/17 Progress towards Goal:: Met Goal #4: pt report ability to walk from car to PT dept with no increase in LBP Goal to be met by: 10/04/17 Progress towards Goal:: Met Purchasing Associate Goals Goal #1: pt report increased ability to perform household activities with less pain Goal to be met by: 10/25/17 Progress towards goal: Progressing Goal #2: Oswestry low back pain score < 10 Goal to be met by: 10/25/17 Progress towards goal: Progressing Goal #3: Improved hamstring, piriformis and lower trunk flexiblity to WFL's Goal to be met by: 10/25/17 Progress towards goal: Progressing Goal #4: Improved LLE strength 4+ to 5/5 Goal to be met by: 10/25/17 Progress towards goal: Progressing Plan PLAN OF CARE EXPIRES ON:: 10/25/17 ORDER # VISITS AND/OR THROUGH DATE: 10/25/17 PLAN: Continue to progress with stretching and strengthening BLE.
--- NOTE | 2017-10-07 11:51 | RS.OPPTDN ---
Subjective Date of Note: 10/07/17 Visit #: 8 Date of Evaluation: 09/13/17 Payer Source: MEDICARE Treatment Diagnosis: OA of spine, Parkinson's disease Current Subjective/complaints:: pt states he is a little sore today, states he walked yesterday morning. *Precautions: avoid bending, lifting and twisting Pain Assessment - Pain Description Pain Location: BLE Pain Description: sorensess Other Comments regarding Pain:: pt states his legs are a little sore. Interventions - Exercise/Activities/Manual Therapy Exercises/Activities: pt received heel cord, hamstring, piriformis, trunk rotation, knee to chest as well as double knee to chest stretches. pt performed multigym x 10lbs scapular retraction with elbows extended as well as elbows flexed 2 sets of 10 reps. pt performed horizontal abd with thumbs up with red theraband x 10 reps, pt performed forward lunges, side lunges x 10reps BLE, sit to stand with arms extended x 15 reps, leg press 60lbs 3 sets of 10 reps, rode bike x 5 mins. Total minutes of Exercise: 40 Manual Therapy: NA HOME EXERCISE PROGRAM: pt given written HEP including: hamstring stretch, piriformis stretch, lumbar rotation stretch, standing extention, - Charges Timed Code Treatment Minutes: 40 Total Treatment Time: 46 Procedures billed for this date of service:: 40 Assessment: pt progressing well with improved posture, BLE strength and decreased low back pain. Plan to reassess on next visit. Patient Education: Home Exercise Program, Education of Plan of Care Patient demonstrates compliance with HEP?: Yes Short Term Goals Goal #1: pt independent with initial HEP Goal to be met by: 10/04/17 Progress towards Goal:: Met Goal #2: pt with decreased hamstring/pirformis tightness by 50% Goal to be met by: 10/04/17 Progress towards Goal:: Met Goal #3: Lumbar lower trunk rotation improved range by 50%. Goal to be met by: 10/04/17 Progress towards Goal:: Met Goal #4: pt report ability to walk from car to PT dept with no increase in LBP Goal to be met by: 10/04/17 Progress towards Goal:: Met Lithographic Photographer Goals Goal #1: pt report increased ability to perform household activities with less pain Goal to be met by: 10/25/17 Progress towards goal: Progressing Goal #2: Oswestry low back pain score < 10 Goal to be met by: 10/25/17 Progress towards goal: Progressing Goal #3: Improved hamstring, piriformis and lower trunk flexiblity to WFL's Goal to be met by: 10/25/17 Progress towards goal: Progressing Goal #4: Improved LLE strength 4+ to 5/5 Goal to be met by: 10/25/17 Progress towards goal: Progressing Plan PLAN OF CARE EXPIRES ON:: 10/25/17 ORDER # VISITS AND/OR THROUGH DATE: 10/25/17 PLAN: Continue strengthening, stretching to improve posture, balance and LE strengthening.
--- NOTE | 2017-10-12 15:29 | RS.PTSUM ---
Progress Note/Summary Date of Note: 10/12/17 Date of Evaluation: 09/13/17 Number of Visits: 9 Reporting Period for this Progress Note: 09/13/17-10/12/17 Current Complaints/Gains: pt states that he feels he is making an effort to stand up straighter, as well as is able to walk further with less pain. pt states he has been having soreness in area of hamstrings and legs feel weak at times. States after Thurs visit experienced increased LBP and LE pain. Objective Measurements/Presentation: pt continues with muscle tightness in B hamstrings and lower trunk. L worse than RLE. pt with no reports of LBP this visit. RLE strength 5/5, LLE strength hip flex 4+/5, knee flex/ext 4+/5, ankle DF/PF 5/5. Oswestry low back pain scale 9. G Codes: mobility: walking and moving around: current CI. mobility: walking and moving around: goal CI Source of G Code Score: oswestry low back pain scale - Short Term Goals Goal #1: pt independent with initial HEP Goal to be met by: 10/04/17 Progress towards Goal:: Met Goal #2: pt with decreased hamstring/pirformis tightness by 50% Goal to be met by: 10/04/17 Progress towards Goal:: Met Goal #3: Lumbar lower trunk rotation improved range by 50%. Goal to be met by: 10/04/17 Progress towards Goal:: Met Goal #4: pt report ability to walk from car to PT dept with no increase in LBP Goal to be met by: 10/04/17 Progress towards Goal:: Met - Jail Goals Goal #1: perform 10 mins of standing activity w/o seated rest or LBP. Goal to be met by: 10/25/17 (goal adjusted 10/12/17) Goal #2: Oswestry low back pain score < 10 Goal to be met by: 10/25/17 Progress towards goal: Met Goal #3: Improved hamstring, piriformis and lower trunk flexiblity to WFL's Goal to be met by: 10/25/17 Progress towards goal: Progressing Goal #4: Improved LLE strength 4+ to 5/5 Goal to be met by: 10/25/17 Progress towards goal: Met - Assessment Assessment of Improvement/Progress: pt has met all STG, LTG 2, 4. Progressing well toward remaining goals. pt with improvements with flexibility, strength as well as posture. Feel pt would continue to benefit from skilled PT to improve strength, balance, and endurance. - Plan Plan: Continue Plan of Care Frequency: 2 X week Duration: 2 weeks PLAN OF CARE EXPIRES ON:: 10/25/17 ORDER # VISITS AND/OR THROUGH DATE: 10/25/17
== END 2017-10-12 23:59 ==
PROVIDERS: ATTEND Family Medicine
DX: M47.9 Spondylosis, unspecified (principal); M62.9 Disorder of muscle, unspecified; M62.81 Muscle weakness (generalized); R29.898 Other symptoms and signs involving the musculoskeletal system; M54.5 Low back pain; G20 Parkinson's disease

== ENCOUNTER 2017-10-26 11:00 | Outpatient (RCR) ==
--- NOTE | 2017-10-14 13:41 | RS.OPPTDN ---
Subjective Date of Note: 10/14/17 Visit #: 10 Date of Evaluation: 09/13/17 Payer Source: MEDICARE Treatment Diagnosis: OA of spine, Parkinson's disease Current Subjective/complaints:: pt states he is feeling some better, less soreness since modified treatment last time. *Precautions: avoid bending, lifting and twisting - Heat/Cryotherapy Treatment: Hot Pack Comments:: B hamstrings Interventions - Exercise/Activities/Manual Therapy Exercises/Activities: pt received heel cord stretch, hamstring stretch, knee to chest, lumbar rotation stretch, piriformis stretch. pt also performed LAQ, seated hip flex with 1 1/2 # weights 2 sets of 10 reps, standing forward lunges , side lunges 2 sets of 10 reps, sit to/from stand with UE ext 2 sets of 10 reps , bike x 6 mins, leg press 75# 3 sets of 10 reps. pt was able to perform standing for 7 min 31 secs without seated rest only standing rest. Manual Therapy: NA HOME EXERCISE PROGRAM: pt given written HEP including: hamstring stretch, piriformis stretch, lumbar rotation stretch, standing extention, - Charges Timed Code Treatment Minutes: 41 Total Treatment Time: 56 Procedures billed for this date of service:: exercise 3, HP Assessment: pt with improved endurance with standing as well as improving with strength, balance and flexibility. pt is progressing well toward remaining goals. Patient Education: Activity Modification, Education of Plan of Care Patient demonstrates compliance with HEP?: Yes Short Term Goals Goal #1: pt independent with initial HEP Goal to be met by: 10/04/17 Progress towards Goal:: Met Goal #2: pt with decreased hamstring/pirformis tightness by 50% Goal to be met by: 10/04/17 Progress towards Goal:: Met Goal #3: Lumbar lower trunk rotation improved range by 50%. Goal to be met by: 10/04/17 Progress towards Goal:: Met Goal #4: pt report ability to walk from car to PT dept with no increase in LBP Goal to be met by: 10/04/17 Progress towards Goal:: Met Longterm Goals Goal #1: perform 10 mins of standing activity w/o seated rest or LBP. Goal to be met by: 10/25/17 (goal adjusted 10/12/17) Progress towards goal: Progressing Goal #2: Oswestry low back pain score < 10 Goal to be met by: 10/25/17 Progress towards goal: Met Goal #3: Improved hamstring, piriformis and lower trunk flexiblity to WFL's Goal to be met by: 10/25/17 Progress towards goal: Progressing Goal #4: Improved LLE strength 4+ to 5/5 Goal to be met by: 10/25/17 Progress towards goal: Met Plan PLAN OF CARE EXPIRES ON:: 10/25/17 ORDER # VISITS AND/OR THROUGH DATE: 10/25/17 PLAN: continue to progress with stretching, strengthening as well as balance activities.
--- NOTE | 2017-10-19 12:01 | RS.OPPTDN ---
Subjective Date of Note: 10/19/17 Visit #: 11 Date of Evaluation: 10/19/17 Payer Source: MEDICARE Treatment Diagnosis: OA of spine, Parkinson's disease Current Subjective/complaints:: pt states he is feeling shaky today. States he thinks his legs are getting a bit better. *Precautions: avoid bending, lifting and twisting Interventions - Exercise/Activities/Manual Therapy Exercises/Activities: pt received heel cord, hamstring, piriformis, lower trunk rotation, knee to chest stretching. pt performed LAQ, seated hip flex with 1 1/2 # weights, forward lunges, side lunges, sit to stand with UE extension 2 sets of 10 reps, standing wall stretch rode restorator x 6 mins, leg press 75# 4 sets of 10 reps. Total minutes of Exercise: 42 Manual Therapy: NA HOME EXERCISE PROGRAM: pt given written HEP including: hamstring stretch, piriformis stretch, lumbar rotation stretch, standing extention, - Charges Timed Code Treatment Minutes: 42 Total Treatment Time: 51 Procedures billed for this date of service:: ex 3 Assessment: pt progressing with standing tolerance. pt performed standing ex to 6.2 mins. pt is improving with posture and LE strength. Patient Education: Home Exercise Program, Education of Plan of Care Patient demonstrates compliance with HEP?: Yes Short Term Goals Goal #1: pt independent with initial HEP Goal to be met by: 10/04/17 Progress towards Goal:: Met Goal #2: pt with decreased hamstring/pirformis tightness by 50% Goal to be met by: 10/04/17 Progress towards Goal:: Met Goal #3: Lumbar lower trunk rotation improved range by 50%. Goal to be met by: 10/04/17 Progress towards Goal:: Met Goal #4: pt report ability to walk from car to PT dept with no increase in LBP Goal to be met by: 10/04/17 Progress towards Goal:: Met Fire And Safety Helper Goals Goal #1: perform 10 mins of standing activity w/o seated rest or LBP. Goal to be met by: 10/25/17 (goal adjusted 10/12/17) Progress towards goal: Progressing Comments: 6.2 mins without rest Goal #2: Oswestry low back pain score < 10 Goal to be met by: 10/25/17 Progress towards goal: Met Goal #3: Improved hamstring, piriformis and lower trunk flexiblity to WFL's Goal to be met by: 10/25/17 Progress towards goal: Progressing Goal #4: Improved LLE strength 4+ to 5/5 Goal to be met by: 10/25/17 Progress towards goal: Met Plan PLAN OF CARE EXPIRES ON:: 10/25/17 ORDER # VISITS AND/OR THROUGH DATE: 10/25/17 PLAN: continue to progress with strengthening ,stretching, ex to improve mobility.
--- NOTE | 2017-10-21 14:08 | RS.OPPTDN ---
Subjective Date of Note: 10/21/17 Visit #: 12 Date of Evaluation: 10/19/17 Payer Source: MEDICARE Treatment Diagnosis: OA of spine, Parkinson's disease Current Subjective/complaints:: pt states that he is doing better today. *Precautions: avoid bending, lifting and twisting - Heat/Cryotherapy Treatment: Hot Pack (hamstrings) Interventions - Exercise/Activities/Manual Therapy Exercises/Activities: pt received hamstring, piriformis, knee to chest, heel cord stretching. Performed forward lunges, side lunges 10 reps with UE extended. pt performed sit to/from stand with UE extended, elliptical 2 sets of 30 secs, rode restorator x 5 mins, leg press 75# 3 sets of 10 reps. Total minutes of Exercise: 42 Manual Therapy: NA HOME EXERCISE PROGRAM: pt given written HEP including: hamstring stretch, piriformis stretch, lumbar rotation stretch, standing extention, - Charges Timed Code Treatment Minutes: 42 Total Treatment Time: 59 Procedures billed for this date of service:: exercise 3 Assessment: pt progressing well toward remaining goals. pt has improved with posture and strength. Patient Education: Home Exercise Program, Activity Modification, Education of Plan of Care Comments: pt progressing well toward remining goals. Patient demonstrates compliance with HEP?: Yes Short Term Goals Goal #1: pt independent with initial HEP Goal to be met by: 10/04/17 Progress towards Goal:: Met Goal #2: pt with decreased hamstring/pirformis tightness by 50% Goal to be met by: 10/04/17 Progress towards Goal:: Met Goal #3: Lumbar lower trunk rotation improved range by 50%. 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 Goal to be met by: 10/25/17 (goal adjusted 10/12/17) Progress towards goal: Progressing Goal #2: Oswestry low back pain score < 10 Goal to be met by: 10/25/17 Progress towards goal: Met Goal #3: Improved hamstring, piriformis and lower trunk flexiblity to WFL's Goal to be met by: 10/25/17 Progress towards goal: Progressing Goal #4: Improved LLE strength 4+ to 5/5 Goal to be met by: 10/25/17 Progress towards goal: Met Plan PLAN OF CARE EXPIRES ON:: 10/25/17 ORDER # VISITS AND/OR THROUGH DATE: 10/25/17 PLAN: plan to dc next visit with pt to continue HEP after DC
--- NOTE | 2017-10-26 11:39 | RS.OPPTDN ---
Subjective Date of Note: 10/26/17 Visit #: 13 Date of Evaluation: 10/19/17 Payer Source: MEDICARE Treatment Diagnosis: OA of spine, Parkinson's disease Current Subjective/complaints:: pt states he has been practicing HEP as well as stretching. Feels he can continue ex on his own. *Precautions: avoid bending, lifting and twisting Interventions - Exercise/Activities/Manual Therapy Exercises/Activities: pt received hamstring, heel cords, knee to chest, lower trunk stretch, standing extension stretch, double knee to chest. pt performed forward lunges, side lunges x 10 reps, elliptical x 1 min, rode bike x 5 mins, leg press 75# 3 sets of 10 reps. Total minutes of Exercise: 41 Manual Therapy: NA HOME EXERCISE PROGRAM: pt given written HEP including: hamstring stretch, piriformis stretch, lumbar rotation stretch, standing extention, - Charges Timed Code Treatment Minutes: 41 Total Treatment Time: 45 Procedures billed for this date of service:: exercise 3 Assessment: pt progressed well with improved posture, balance as well as strength BLE. pt has met all STG and LTG 2, 4. pt continues with muscle tightness in BLE as well as forward posture. Patient Education: Home Exercise Program, Education of Plan of Care Patient demonstrates compliance with HEP?: Yes Short Term Goals Goal #1: pt independent with initial HEP Goal to be met by: 10/04/17 Progress towards Goal:: Met Goal #2: pt with decreased hamstring/pirformis tightness by 50% Goal to be met by: 10/04/17 Progress towards Goal:: Met Goal #3: Lumbar lower trunk rotation improved range by 50%. 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 Goal to be met by: 10/25/17 (goal adjusted 10/12/17) Progress towards goal: Progressing Goal #2: Oswestry low back pain score < 10 Goal to be met by: 10/25/17 Progress towards goal: Met Goal #3: Improved hamstring, piriformis and lower trunk flexiblity to WFL's Goal to be met by: 10/25/17 Progress towards goal: Progressing Goal #4: Improved LLE strength 4+ to 5/5 Goal to be met by: 10/25/17 Progress towards goal: Met Plan PLAN OF CARE EXPIRES ON:: 10/26/17 ORDER # VISITS AND/OR THROUGH DATE: 10/25/17 PLAN: DC this visit
--- NOTE | 2017-10-26 11:49 | RS.OPPTDC ---
Date of Discharge: 10/26/17 Date of Evaluation: 10/19/17 Number of Visits: 13 Treatment Diagnosis: OA of spine, Parkinson's disease Current Level of Function: Oswestry low back pain score improved from 26% to 18% . pt BLE strength 5/5, posture is improving. pt has also improved endurance. Current Complaints/Gains: pt reports he has begun walking for ex and has been working on HEP. pt states he feels he can continue home program on his own. Functional Outcome Measure Oswestry LBP: 9 (18%) - G Codes & Severity Modifier G Codes & Modifier: mobility walking and moving around current CI. mobility walking and moving around goal CI Source of G Code score: oswestry low back pain scale Observation - Observation Posture: Forward Head, Rounded Shoulders, Increased Thoracic Kyphosis Handedness: Right Gait - Gait Pattern General Gait Pattern Observation: Shuffling Step Gait Comments: pt with slight flexed posture, which has improved as well as occasional shuffling gait. pt has improved with gait sequencing. General Range of Motion: WFL's Muscle Strength: WFL's Interventions - Exercise/Activities/Manual Therapy Exercises/Activities: pt received hamstring, heel cords, knee to chest, lower trunk stretch, standing extension stretch, double knee to chest. pt performed forward lunges, side lunges x 10 reps, elliptical x 1 min, rode bike x 5 mins, leg press 75# 3 sets of 10 reps. Manual Therapy: NA HOME EXERCISE PROGRAM: pt given written HEP including: hamstring stretch, piriformis stretch, lumbar rotation stretch, standing extention, - Charges Timed Code Treatment Minutes: n/a Total Treatment Time: n/a Procedures billed for this date of service:: n/a Assessment Assessment: pt has met STGs, LTG 2, 4. Pt has made progress with LBP, posture, as well as strengthening. Patient Education: Home Exercise Program, Education of Plan of Care Rehab Potential: Good Short Term Goals Goal #1: pt independent with initial HEP Goal to be met by: 10/04/17 Progress towards Goal:: Met Goal #2: pt with decreased hamstring/pirformis tightness by 50% Goal to be met by: 10/04/17 Progress towards Goal:: Met Goal #3: Lumbar lower trunk rotation improved range by 50%. 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 Goal to be met by: 10/25/17 (goal adjusted 10/12/17) Progress towards goal: Progressing Comments: able to stand x 7 mins Goal #2: Oswestry low back pain score < 10 Goal to be met by: 10/25/17 Progress towards goal: Met Goal #3: Improved hamstring, piriformis and lower trunk flexiblity to WFL's Goal to be met by: 10/25/17 Progress towards goal: Progressing Goal #4: Improved LLE strength 4+ to 5/5 Goal to be met by: 10/25/17 Progress towards goal: Met Plan Comments: Most goals met
== END 2017-11-12 23:59 ==
PROVIDERS: ATTEND Family Medicine
DX: M47.9 Spondylosis, unspecified (principal); M62.9 Disorder of muscle, unspecified; M62.81 Muscle weakness (generalized); R29.898 Other symptoms and signs involving the musculoskeletal system; M54.5 Low back pain; G20 Parkinson's disease

== ENCOUNTER 2018-09-05 07:25 | Outpatient (CLI) ==
--- NOTE | 2018-09-05 10:26 | US ---
EXAM: Renal ultrasound HISTORY: Decreased GFR, chronic kidney disease COMPARISON: None TECHNIQUE: Renal ultrasound was performed FINDINGS: Right kidney measures 4.7 x 5.2 x 10.6 cm. Left kidney measures 4.8 x 4.5 x 10.4 cm. Cole al cortical echogenicity is increased bilaterally. No hydronephrosis or renal calculus large enough to cause acoustic shadowing. Bladder only minimally distended and poorly evaluated. IMPRESSION: 1. No hydronephrosis. 2. Findings suggesting medical renal disease.
== END 2018-09-05 07:26 | disposition home or self-care (01) ==
LOC: RAD 07:25
PROVIDERS: ATTEND Family Medicine
DX: N18.3 Chronic kidney disease, stage 3 (moderate) (principal); R94.4 Abnormal results of kidney function studies